=== PATIENT | female | born 1945 | race Caucasian/White ===

== ENCOUNTER 2019-09-05 14:13 | Outpatient (CLI) | payer MEDICARE, OTHER, SELFPAY | END 2019-09-05 14:14 | disposition home or self-care (01) | LOC: WOUND 14:15 | PROVIDERS: Family Provider Family Medicine; PCP Family Medicine; Visit Provider Thoracic Surgery (Cardiothoracic Vascular Surgery) | DX: I96 Gangrene, not elsewhere classified (principal); L97.812 Non-pressure chronic ulcer of other part of right lower leg with fat layer exposed | CPT/HCPCS: 11042; 87070; 87077; 87176; 87186; 87205; G0463 ==

== ENCOUNTER 2019-09-19 13:56 | Outpatient (CLI) | payer MEDICARE, OTHER, SELFPAY | END 2019-09-19 13:57 | disposition home or self-care (01) | LOC: WOUND 13:57 | PROVIDERS: Family Provider Family Medicine; PCP Family Medicine; Visit Provider Thoracic Surgery (Cardiothoracic Vascular Surgery) | DX: I87.2 Venous insufficiency (chronic) (peripheral) (principal); L97.812 Non-pressure chronic ulcer of other part of right lower leg with fat layer exposed; M79.604 Pain in right leg; L97.919 Non-pressure chronic ulcer of unspecified part of right lower leg with unspecified severity; L53.9 Erythematous condition, unspecified; M81.0 Age-related osteoporosis without current pathological fracture; M19.90 Unspecified osteoarthritis, unspecified site | CPT/HCPCS: 11043; 73590 ==

== ENCOUNTER 2019-09-19 15:33 | Outpatient (CLI) | payer MEDICARE, OTHER, SELFPAY ==
--- NOTE | 2019-09-19 15:45 | XR_ITS ---
WS: [id number] Right leg including the tibia and fibula, 2 views, 09/19/2019 Clinical Data: PAIN, REDNESS, NON HEALING ULCER Comparison: Right ankle, 05/29/2015. Findings: No new fractures or dislocations are seen. The tibia and fibula are intact. The soft tissues are norm al. The sixth orthopedic screws reducing an old distal right tibial fracture remaining in the same positi on. 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 There is narrowing of the ankle joint. There is o steoarthritis of the knee joint. XR/XR tibia fibula RT 2V [id number] Impression: 1. No change in position of orthopedic hardware in the distal right tibia. 2. Osteoporosis and osteoarthritis.
== END 2019-09-19 15:34 | disposition home or self-care (01) ==
LOC: RADWPI 15:42
PROVIDERS: Family Provider Family Medicine; PCP Family Medicine; Visit Provider Thoracic Surgery (Cardiothoracic Vascular Surgery)
DX: M79.604 Pain in right leg (principal); L97.919 Non-pressure chronic ulcer of unspecified part of right lower leg with unspecified severity; L53.9 Erythematous condition, unspecified; M81.0 Age-related osteoporosis without current pathological fracture; M19.90 Unspecified osteoarthritis, unspecified site
CPT/HCPCS: 73590

== ENCOUNTER 2019-09-26 09:34 | Outpatient (CLI) | payer MEDICARE, OTHER, SELFPAY ==
--- NOTE | 2019-09-26 10:15 | USCV_ITS ---
Alba Maria Age: 74 Gender: F : 1945 Exam Date: 09/26/2019 09:54 Ordering Phys: Reymundo De La Rosa MD (Andy) ([email or web address]) Technologist: Tre Otero Exam Location: [facility] – [place] Indication: HISTORY: PROCEDURES: FINDINGS: No DVT or superficial thrombus seen in right or left Right SFJ showed significant reflux Left - no reflux found Vessel diameters and reflux times noted above CONCLUSIONS No evidence of DVT in the above-mentioned identifiable veins. Significant venous reflux of greater than 500 ms(2037 msec) was noted at the right saphenofemoral junction. No deep venous reflux are noted. The venous dimensions, depth from the surface and reflux times are as mentioned above. Dr Balaji Carmichael MD FAC (Electronically Signed) Final Date: 27 September 2019 08:33 S
== END 2019-09-26 09:35 | disposition home or self-care (01) ==
PROVIDERS: Family Provider Family Medicine; PCP Family Medicine; Visit Provider Thoracic Surgery (Cardiothoracic Vascular Surgery)
DX: M79.605 Pain in left leg (principal); M79.604 Pain in right leg; L97.929 Non-pressure chronic ulcer of unspecified part of left lower leg with unspecified severity; L97.919 Non-pressure chronic ulcer of unspecified part of right lower leg with unspecified severity
CPT/HCPCS: 93970

== ENCOUNTER 2019-09-26 14:33 | Outpatient (CLI) | payer MEDICARE, OTHER, SELFPAY | END 2019-09-26 14:34 | disposition home or self-care (01) | LOC: WOUND 14:37 | PROVIDERS: Family Provider Family Medicine; PCP Family Medicine; Visit Provider Thoracic Surgery (Cardiothoracic Vascular Surgery) | DX: I87.2 Venous insufficiency (chronic) (peripheral) (principal); L97.812 Non-pressure chronic ulcer of other part of right lower leg with fat layer exposed; M79.605 Pain in left leg; M79.604 Pain in right leg; L97.929 Non-pressure chronic ulcer of unspecified part of left lower leg with unspecified severity; L97.919 Non-pressure chronic ulcer of unspecified part of right lower leg with unspecified severity | CPT/HCPCS: 11043; 93970 ==

== ENCOUNTER 2019-10-03 14:13 | Outpatient (CLI) | payer MEDICARE, OTHER, SELFPAY | END 2019-10-03 14:14 | disposition home or self-care (01) | LOC: WOUND 14:15 | PROVIDERS: Family Provider Family Medicine; PCP Family Medicine; Visit Provider Thoracic Surgery (Cardiothoracic Vascular Surgery) | DX: I87.2 Venous insufficiency (chronic) (peripheral) (principal); L97.812 Non-pressure chronic ulcer of other part of right lower leg with fat layer exposed | CPT/HCPCS: 11043; A6446 ==

== ENCOUNTER 2019-10-05 07:22 | Outpatient (CLI) | payer MEDICARE, OTHER, SELFPAY ==
--- NOTE | 2019-10-05 07:35 | USCV_ITS ---
Alba Maria Age: 74 Gender: F : 1945 Exam Date: 10/05/2019 07:31 Ordering Phys: Reymundo De La Rosa MD (Andy) ([email or web address] Technologist: Anisa Mcmahon Exam Location: [facility] [place] Indication: pain,redness, non healing ulcer Risk Factors: Previous Vascular Surgery: RIGHT LEFT BP: 185.0 / 63.00 BP: 172.0/ 74.00 0 0 Waveform Velocity (cm/s) Velocity (cm/s) Waveform Biphasic 107.6 Iliac Prox 177.8 Triphasic Biphasic 102.7 Iliac Mid 139.8 Triphasic Biphasic 132.0 Iliac Distal 157.1 Triphasic Biphasic 144.0 DETAILER 124.3 Biphasic Biphasic 131.1 SFA Prox 63.2 Biphasic Biphasic 110.7 SFA Mid 119.6 Biphasic Biphasic 101.5 SFA Dist 85.2 Biphasic Biphasic 86.1 POP 42.8 Biphasic Biphasic 34.7 CASH POSTING REPRESENTATIVE 39.0 Biphasic Biphasic 54.9 DPA 33.5 Biphasic 1.0 ZAHIRA 0.9 FINDINGS rt captain cannery tender 178, rt dpa 160 lt captain cannery tender 170, kt dpa 160 Moderate dense irregular plaques bilaterally at the iliac and femoral arteries. Normal resting ZAHIRA on the right side and slightly diminished resting ZAHIRA on the left side CONCLUSIONS Abnormal resting ZAHIRA on the left side, suggestive of mild peripheral artery disease Moderate dense irregular plaques at the iliac and femoral arteries bilaterally. Consider exercise ZAHIRA, to further evaluate the functional significance, if clinically indicated Dr Balaji Carmichael MD [facility] (Electronically Signed) Final Date: 06 October 2019 00:38 S
== END 2019-10-05 07:23 | disposition home or self-care (01) ==
PROVIDERS: PCP Family Medicine; Visit Provider Thoracic Surgery (Cardiothoracic Vascular Surgery)
DX: M79.604 Pain in right leg (principal); M79.605 Pain in left leg; L53.9 Erythematous condition, unspecified; L97.919 Non-pressure chronic ulcer of unspecified part of right lower leg with unspecified severity
CPT/HCPCS: 93925

== ENCOUNTER 2019-10-10 06:01 | Outpatient (CLI) | payer MEDICARE, OTHER, SELFPAY ==
--- NOTE | 2019-10-10 10:22 | NM_ITS ---
WS: [id number] WHOLE-BODY INDIUM-111 TAGGED TO WHITE BLOOD CELL SCAN AND TC 99M SULFUR COLLOID SCAN HISTORY: PAIN REDNESS, NONHEALING ULCER COMPARISON: Radiographs RIGHT tibia-fibula 09/19/2019. TECHNIQUE: Patient's white blood cells are injected with 410 uCi of indium-111. White cyst blood cell s are injected with imaging at 6 and 24 hours post injection. After 24 hour imaging, 9.7 uCi of tech netium 99m sulfur colloid was injected. Additional imaging over the area of concern The indium-111 white blood cell examination and the sulfur colloid examination are both positive on t he medial RIGHT lower extremity. This is in the area of the previously described soft tissue ulcer. T his is also the area where there are multiple screws or hardware in the distal tibia. No additional a reas of abnormal uptake on the indium-111 portion of the examination. Sulfur colloid exam was dedicat ed to the lower extremities. As there is abnormal activity on both the white blood cell study and the sulfur colloid imaging this would suggest displaced marrow and not infection. Areas of infection are increased on the indium-111 but no increase in the sulfur colloid examination. Also this patient has undergone surgical debrideme nt just prior to the sulfur colloid portion of the examination. If there was interruption or scraping along the cortical surface this may result in a false negative evaluation for osteomyelitis. NM/NM IN-111 WBC scan [id number] IMPRESSION: 1. The abnormal uptake in the distal tibia is congruent suggesting this is not osteomyelitis but displacement of normal marrow. One confounding factor is the fact that the patient recently had a surgical procedure and if there was inter ruption of the cortical surface of the bone it may obscure a positive response for osteomyelitis.
== END 2019-10-10 06:02 | disposition home or self-care (01) ==
LOC: NM 06:02
PROVIDERS: PCP Family Medicine; Visit Provider Thoracic Surgery (Cardiothoracic Vascular Surgery)
DX: M79.604 Pain in right leg (principal); L53.9 Erythematous condition, unspecified; L97.919 Non-pressure chronic ulcer of unspecified part of right lower leg with unspecified severity
CPT/HCPCS: 78804; A9570

== ENCOUNTER 2019-10-10 13:14 | Outpatient (CLI) | payer MEDICARE, OTHER, SELFPAY | END 2019-10-10 13:15 | disposition home or self-care (01) | LOC: WOUND 13:15 | PROVIDERS: PCP Family Medicine; Visit Provider Thoracic Surgery (Cardiothoracic Vascular Surgery) | DX: I87.2 Venous insufficiency (chronic) (peripheral) (principal); L97.812 Non-pressure chronic ulcer of other part of right lower leg with fat layer exposed | CPT/HCPCS: 11043; 11046 ==

== ENCOUNTER 2019-10-10 14:44 | Inpatient (IN) | payer MEDICARE, OTHER, SELFPAY ==
[2019-10-10 16:06] VITALS: BMI 22.6
--- NOTE | 2019-10-10 17:40 | XRR_ITS ---
PROCEDURE INFORMATION: Exam: XR Chest, 1 View Exam date and time: 10/10/2019 8:00 PM Age: 74 years old Clinical indication: Pre-operative exam; Cardiovascular screening and respiratory screening exam; Additional info: Preop for surgery TECHNIQUE: Imaging protocol: XR of the chest Views: 1 view. COMPARISON: No relevant prior studies available. FINDINGS: Lungs: Unremarkable. No consolidation. Pleural space: Unremarkable. No pleural effusion. No pneumothorax. Heart/Mediastinum: Unremarkable. No cardiomegaly. Bones/joints: Unremarkable. XR/XR chest 1V portable [id number] IMPRESSION: No acute findings.
[2019-10-10] MEDS: lactated ringers 1,000 ML 100 ML IV (18:10)
[2019-10-10] MEDS: vancomycin 1,000 MG in sodium chloride 0.9% 250 ML 250 MG IV (18:10)
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
[2019-10-10 19:31] LABS: Basophils % 0.5 %; Eosinophils # 0.1 10^3/uL (0.0-0.8); Eosinophils % 1.1 %; Hematocrit 33.5 % (37.0-47.0); Hemoglobin 10.9 g/dL (11.5-15.3); Lymphocytes # 2.1 10^3/uL (0.8-4.8); Lymphocytes % 34.1 %; Mean Corpuscular HGB Conc 32.5 g/dL (30.0-36.0); Mean Corpuscular Hemoglobin 34.2 pg (28.0-34.0); Mean Platelet Volume 10.4 fL (7.4-10.4); Monocytes # 0.4 10^3/uL (0.2-0.9); Monocytes % 6.4 %; Neutrophils # 3.54 10^3/uL (1.8-7.7); Neutrophils % 57.7 %; Nucleated Red Blood Cells % 0 %; Platelet Count 243 10^3/cmm (130-400); Red Blood Count 3.19 10^6/uL (4.1-5.3); Red Cell Distribution Width 13.6 % (12.1-15.1); White Blood Count 6.1 10^3/uL (4.0-10.0)
[2019-10-10 19:40] VITALS: BP 171/67; PULSE 64; RESP 18; TEMP 36.6; O2SAT 97
[2019-10-10] MEDS: diphenhydrAMINE 25 mg Capsule PO (19:50)
[2019-10-10] MEDS: HYDROcodone-acetaminophen 5-325 mg Tablet 1 TAB PO (19:50)
[2019-10-10] MEDS: piperacillin-tazobactam 3.375 GM in sodium chloride 0.9% (plus) 50 ML IV (19:51)
[2019-10-10 19:54] LABS: Alanine Aminotransferase 8 U/L (0-33); Albumin Level 3.6 g/dL (3.5-5.2); Alkaline Phosphatase 77 IU/L (35-105); Anion Gap 10.5 (5-19); Aspartate Amino Transferase 13 U/L (0-32); Blood Urea Nitrogen 13 mg/dL (8-23); Carbon Dioxide 27 mmol/L (22-29); Chloride 99 mmol/L (98-107); Globulin 2.8 g/dL (1.3-4.6); Glucose 105 mg/dL (65-115); Magnesium 1.6 mg/dL (1.7-2.3); Osmolality Calculated 273 mOsm/kg (285-295); Phosphorus 2.5 mg/dL (2.5-4.5); Potassium 3.5 mmol/L (3.5-5.1); Sodium 133 mmol/L (136-145); Total Bilirubin 0.2 mg/dL (0.15-1.2); Total Protein 6.4 g/dL (6.6-8.7)
[2019-10-10 19:56] LABS: Add Urine Microscopic? NO
[2019-10-10 20:27] LABS: INR 0.97 (0.8-1.2)
[2019-10-10 21:04] LABS: Bilirubin Urine Neg (NEGATIVE); Blood Urine Neg (Negative); Glucose Urine UA Norm (Normal); Ketones Urine Negative (Negative); Leukocyte Esterase Urine Negative (Negative); Nitrate Urine Negative (Negative); Protein Urine Neg (Negative); Specific Gravity, Urine 1.015 (1.005-1.030); Urine Appearance Clear (CLEAR); Urine Color Yellow (Yellow); Urobilinogen Urine Norm (Negative); pH Urine 7 (5-7)
[2019-10-10 23:28] VITALS: BP 150/54; PULSE 57; RESP 18; TEMP 37; O2SAT 99
[2019-10-11] VITALS (15 sets, daily range): BP systolic 85–199; BP diastolic 46–91; PULSE 48–80; RESP 12–20; TEMP 36.1–37.1; O2SAT 18–100
[2019-10-11] MEDS: lactated ringers 1,000 ML 100 ML IV ×2 (03:38→11:18)
[2019-10-11] MEDS: piperacillin-tazobactam 3.375 GM in sodium chloride 0.9% (plus) 50 ML IV ×2 (03:38→15:10)
[2019-10-11] MEDS: HYDROcodone-acetaminophen 5-325 mg Tablet 1 TAB PO ×4 (03:40→21:35)
--- NOTE | 2019-10-11 05:43 | PM.PN ---
Subjective Subjective: Interval history: Ms. Maria had an uneventful night. Rested well as reported by nursing service. I have reviewed laboratory data and personally reviewed the chest x-ray. Vitals/I&O/Wt Last Vital Signs Temp 98.2 F 10/11/19 04:00 Pulse 58 L 10/11/19 04:00 Resp 18 10/11/19 04:00 BP 138/68 10/11/19 04:00 Pulse Ox 96 10/11/19 04:00 10/10/19 10/10/19 10/11/19 14:59 22:59 06:59 Intake Total 282.708 / 282.708 713.959 / 996.667 Output Total 400 / 400 Balance 282.708 / 282.708 313.959 / 596.667 Weight last 48 hrs Weight 132 lb Physical Exam Resp: COMMON NORMALS: normal respiratory effort and clear to auscultation bilaterally EFFORT & INSPECTION: Yes able to speak in complete sentences and Yes symmetric chest movement AUSCULTATION: clear to auscultation bilaterally Cardio: COMMON NORMALS: regular rate and regular rhythm RATE: regular rate RHYTHM: regular rhythm Extremity: OTHER: Dressing remains in place of the right lower extremity. No strikethrough. Will plan for surgical debridement with anesthesia assistance for allowing appropriate patient comfort what appears to be a continuation of this process anteriorly and laterally. Data : 10/10/19 18:56 10/10/19 18:56 A&P Assessment and plan (1) Abscess of leg without foot, right: We will plan for surgical debridement this morning of the right lower extremity with anesthesia assistance for patient comfort. If extent does not proceed beneath the fascia, will hopefully plan for discharge to home this evening and continued treatment through the wound care services at [facility]. Details and risk of procedure carefully and frankly discussed with Ms. Maria. Proper consents have been provided for review and signature. Status: Acute Attestations Medical Necessity Statement*: Venous ulceration with abscess right lower extremity Time Spent in Patient Care: less than 15 minutes Coding Level of Care Code Acute Poll Clerk for g Fwd Diagnoses Abscess of leg without foot, right L02.415
--- NOTE | 2019-10-11 07:59 | PC.NURSE ---
Patient off unit
--- NOTE | 2019-10-11 08:20 | PC.CHAP ---
Pastoral Care Encounter/Spiritual Assessment Type of Contact [] Declined human development professor visit [] Patient/Family/Request visit [] Outpatient visit [] Follow-up visit [] Physician referral [] Code/Alert [x] Routine visit [] Staff referral [] Actively dying [] Patient sleeping [] Family support [] [] Out of room [] Palliative care [] [] Receiving care in room [] Pre-surgical visit [] Trauma [] Long length of stay [] ICU visit [] Other: Relational/Emotional Strength [] Patient feels connected with others/family/visitors/staff [] Distress [] Loneliness/isolation [] Abandonment Spirituality of Patient [] Person of Anika [] Attends Protestant of their Anika [] Believes in Prayer [] Reads Bible or Oriental Orthodox materials [] There are Spiritual issues to be addressed Senior Project Controls Specialist Interventions [x] Prayer [] Active listening [] Non-anxious presence [] Spiritual/emotional support [] Crisis/trauma care [] Spiritual counseling [] Bereavement support [] Provided bereavement packet [] Provided Bible/devotional materials [] Provided toy/stuffed animal, coloring book to patient or family member [] Provided Communion [] Anointing/[place] [] Salvation [x] Completed spiritual assessment [] Other: Impact on Illness or Injury [] Angry [] Fearful [] Anxious [] Often cries [] Exhaustion [] Unable to work [] Unable to attend muslim [] Unable to walk/stand [] Unable to read [] Unable to drive [] Unable to eat/drink [] Unable to sleep [] Unable to be with family [] Patient intubated [] Other: Summary quick prayer patient on her way to surgery Time spent with patient
[2019-10-11] MEDS: sodium chloride 0.9% 1,000 ML 30 ML IV (08:29)
--- NOTE | 2019-10-11 08:38 | ECG_ITS ---
[facility] Test Date: 2019-10-11 Pat Name: Alba Maria Department: Room: 272 Gender: Female Netezza Developer: : 1945 Requested By: Ros Verdin Order Number: [id number] Sigifredo MD: Kota Pope M.D. Measurements Intervals [place] Rate: 49 P: 27 WV: 143 QRS: 15 QRSD: 96 T: 16 QT: 442 QTc: 401 Interpretive Statements SINUS BRADYCARDIA SEPTAL MYOCARDIAL INFARCTION [40+ ms Q WAVE IN V1/V2], OF INDETERMINATE AGE No previous ECG available for comparison Electronically Signed On 10-11-2019 18:04:22 CDT by Kota Pope M.D. [email or web address]
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
[2019-10-11] MEDS: lidocaine 1% INJ 20 mL INJECTION (09:20)
[2019-10-11] MEDS: ceFAZolin 1,000 mg SDV 1000 MG IRRIGATION (09:49)
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
--- NOTE | 2019-10-11 10:21 | SUR.PHASEI ---
1019 PATIENT TO PACU FROM OR. NO DISTRESS. RR EVEN AND UNLABORED. SPO2 98% ON SIMPLE MASK. DRESSING TO RIGHT LOWER LEG, CDI.
[2019-10-11] MEDS: fentaNYL 50 mcg/mL INJ 2mL IVP (10:31)
--- NOTE | 2019-10-11 11:02 | SUR.PHASEI ---
1041 PATIENT TO MED SURG AT THIS TIME. NO DISTRESS. PAIN IMPROVED. DRESSING TO RIGHT LOWER EXT CDI. ANESTHESIA AWARE OF LAST DOSE OF FENTANYL, THIS NURSE REMAINED WITH PATIENT UNTIL 1100.
--- NOTE | 2019-10-11 11:05 | PC.NURSE ---
Patient returned to floor, denies pain, vitals stable as documented, sipping on coffee, call light in reach, side rails up X2, denies further needs at this time.
[2019-10-11] MEDS: FUROsemide 40 mg Tablet PO (11:25)
[2019-10-11] MEDS: pantoprazole DR 40 mg Tablet PO (11:25)
[2019-10-11] MEDS: aspirin 81 mg Chew Tablet PO (11:26)
[2019-10-11] MEDS: lisinopril 20 mg Tablet PO (11:26)
[2019-10-11] MEDS: potassium chloride ER 10 mEq Tablet 20 MEQ PO (11:26)
[2019-10-11] MEDS: amlodipine 10 mg Tablet PO (11:26)
--- NOTE | 2019-10-11 12:39 | PC.NURSE ---
Patient off unit
[2019-10-11] MEDS: vancomycin 1,000 MG in sodium chloride 0.9% 250 ML 250 MG IV (15:10)
--- NOTE | 2019-10-11 15:19 | XR_ITS ---
WS: [id number] PORTABLE CHEST HISTORY: picc placement COMPARISON: 10/10/2019 Right-sided PICC line in good position with tip in the distal SVC. No complications. There is a nodule at the LEFT lung base which is probably a nipple shadow. Not identified on the prio r study from 10/10/2019. No pleural effusion or pneumothorax. Cardiac size: Normal. Mediastinum/Aorta: Mild atherosclerosis aorta. No osseous abnormality seen. XR/XR chest 1V portable [id number] IMPRESSION: Satisfactory placement of a RIGHT PICC line.
[2019-10-12] VITALS: BP 131/45; PULSE 59; RESP 17; TEMP 36.8; O2SAT 97
[2019-10-12] MEDS: lactated ringers 1,000 ML 100 ML IV (01:02)
[2019-10-12] MEDS: piperacillin-tazobactam 3.375 GM in sodium chloride 0.9% (plus) 50 ML IV (01:02)
[2019-10-12] MEDS: HYDROcodone-acetaminophen 5-325 mg Tablet 1 TAB PO ×2 (02:30→05:38)
[2019-10-12 03:50] VITALS: BP 147/57; PULSE 70; RESP 17; TEMP 36.7; O2SAT 98
[2019-10-12] MEDS: vancomycin 1,000 MG in sodium chloride 0.9% 250 ML 250 MG IV (05:38)
--- NOTE | 2019-10-12 05:54 | PM.PN ---
Subjective Subjective: Interval history: Postop day #1 status post incision and drainage and debridement of ulceration right lower extremity. Results of tagged white blood cell count noted. She had uneventful night. Wound Gram stain did report gram-positive cocci in pairs Vitals/I&O/Wt Last Vital Signs Temp 98.0 F 10/12/19 03:50 Pulse 70 10/12/19 03:50 Resp 17 10/12/19 03:50 BP 147/57 10/12/19 03:50 Pulse Ox 98 10/12/19 03:50 10/11/19 10/11/19 10/12/19 14:59 22:59 06:59 Intake Total 826.667 / 375.780 5355 / 2246.667 Output Total 0 / 0 530 / 530 Balance 826.667 / 635.129 5025 / 2246.667 -530 / 1716.667 Weight last 48 hrs Weight 132 lb Physical Exam Extremity: NARRATIVE EXTREMITY EXAM: Right lower extremity surgical dressing in place. Data : 10/10/19 18:56 10/10/19 18:56 Micro: Microbiology 10/11/19 10:00 Gram Stain - Final Leg - #1 A&P Assessment and plan (1) Venous stasis ulcer of right lower leg with edema of right lower leg: We will plan for discharge to home today but continue parenteral vancomycin for now pending response of recent surgical debridement and follow-up in wound care services. I will see her next Wednesday in the wound care clinic. Status: Acute Attestations Medical Necessity Statement*: Postop day #1 status post debridement of right lower extremity ulcer Time Spent in Patient Care: 16 - 35 minutes Coding Level of Care Code Acute Graphic Design Manager for Lo Khan Diagnoses Venous stasis ulcer of right lower leg with edema of right lower leg I83.019; I83.891; L97.919; R60.9
--- NOTE | 2019-10-12 06:47 | PC.NURSE ---
Dr. Kahn at bedside, assisted with dressing change, patient is going to be discharged this morning and will receive outpatient iv antibiotics, and follow up with wound care, patient will need supplies ordered.
--- NOTE | 2019-10-12 06:52 | PM.DCS ---
Discharge Providers Date of Admission: 10/10/19 14:44 Date of Discharge: October 12, 2019 Attending Provider at Admission: Reymundo De La Rosa MD Attending Provider at Discharge: Reymundo De La Rosa MD Primary Care Provider: Jesus Piper MD Diagnoses at Discharge Discharge Diagnosis (1) Venous stasis ulcer of right lower leg with edema of right lower leg: Status: Acute Hospital Course Discharge Summary: Ms. Maria was electively admitted for planned debridement of a ulceration of her right lower extremity which is been present for over 1 month and is failed to improve with management [place] [facility] [place] Last debridement of the clinic was relatively painful therefore I elected for planned admission for more aggressive debridement under anesthesia. This was performed without difficulty. As well, given the concerns of prior orthopedic hardware in the region, a white blood cell tagged scan was completed which was not suggestive for osteomyelitis though because of recent debridement, definitive results could not be confirmed. She does have gram-positive cocci in pairs in her wound, therefore right upper extremity PICC line was placed and she has been initiated on vancomycin which she will have infused [place] [facility] [place] She does not wish to have home health services do this. Wound remains clean at this time with a wick dressing change performed on the morning of discharge. She will follow-up in wound care services next Wednesday. At discharge she is in stable condition. Physical Exam Extremity: NARRATIVE EXTREMITY EXAM: The debrided ulceration bed is clean without further evidence for purulence. Wet-to-dry dressing change was performed this morning, which she tolerated well. Currently receiving vancomycin infusion. Discharge Data Data Completed and Pending: Completed Studies During Hospitalization Category Date Time Status CXRP [XR chest 1V portable [id number]] R outine Exams 10/11/19 15:19 Completed XR chest 1V leonidas ble [id number] Routine Exams 10/10/19 17:40 Completed Pending at discharge Category Date Time Status Anaerobic Culture Routine Lab 10/11/19 10:00 Received Tissue Culture an d Gram Stain Routi ne Lab 10/11/19 10:00 Results Vancomycin Trough Timed Lab 10/12/19 17:00 Ordered Wound Culture Rou popeye Lab 10/11/19 10:00 Received Vitals: Last Vital Signs Temp 98.0 F 10/12/19 03:50 Pulse 70 10/12/19 03:50 Resp 17 10/12/19 03:50 BP 147/57 10/12/19 03:50 Pulse Ox 98 10/12/19 03:50 Discharge Plan Discharge Patient Disposition: Home Condition: Stable Prescriptions: New vancomycin 1,000 mg recon soln 1,000 mg IV Q18H PRN (Reason: infection) 42 Days RF: 0 Continued furosemide 40 mg Tablet 40 mg PO DAILY RF: 0 Aspirin Low Dose 81 mg Tablet,Delayed Release (Dr/Ec) 81 mg PO DAILY RF: 0 folic acid 1 mg Tablet 1 mg PO DAILY RF: 0 hydrochlorothiazide 50 mg Tablet 50 mg PO DAILY RF: 0 hydrocodone-acetaminophen 5-325 mg Tablet 1 - 2 tab PO Q6H PRN (Reason: Pain) RF: 0 lisinopril 20 mg Tablet 20 mg PO DAILY RF: 0 potassium chloride 20 mEq Tablet,Er Particles/Crystals 20 meq PO TID RF: 0 methotrexate sodium 2.5 mg Tablet 17.5 mg PO Q7D RF: 0 amlodipine 10 mg Tablet 10 mg PO DAILY RF: 0 simvastatin 20 mg Tablet 20 mg PO DAILY RF: 0 fentanyl 25 mcg/hr Patch 72 Hour 1 patch TRANSDERMAL Q72H RF: 0 Discharge Orders: Discharge Order (Routine); Ordered 10/12/19 Ordered By: Reymundo De La Rosa Referrals: WOUND CARE CLINIC, [Staff Physician] - 10/17/19 Discharge Diet: Usual diet Discharge Activity: Resume usual activity Activity Restrictions/Additional Instructions: Wet-to-dry dressing changes to right lower extremity wound daily Discharge Attestations Time Spent in Discharge Care*: greater than 30 min Specific Discharge Activities: Specific discharge activities: educating patient, discussing with insurance case manager/social workers/dc planners, documenting/other paperwork and evaluating patient/reviewing data Status at Discharge: Cognitive status at discharge: cognitively intact, Behavioral status at discharge: cooperative, Overall status at discharge: patient is back to baseline Quality Metrics Clinical Quality Measures During this hospital stay, did patient experience: None Coding Level of Care Code Acute Ship'S Cook for Lo Khan Diagnoses Venous stasis ulcer of right lower leg with edema of right lower leg I83.019; I83.891; L97.919; R60.9
[2019-10-12 07:56] VITALS: BP 133/51; PULSE 60; RESP 18; TEMP 36.7; O2SAT 98
[2019-10-12] MEDS: amlodipine 10 mg Tablet PO (08:57)
[2019-10-12] MEDS: aspirin 81 mg Chew Tablet PO (08:57)
[2019-10-12] MEDS: potassium chloride ER 10 mEq Tablet 20 MEQ PO (08:57)
[2019-10-12] MEDS: FUROsemide 40 mg Tablet PO (08:57)
[2019-10-12] MEDS: lisinopril 20 mg Tablet PO (08:57)
[2019-10-12] MEDS: pantoprazole DR 40 mg Tablet PO (08:58)
[2019-10-12 10:02] VITALS: BP 133/51; PULSE 60; RESP 18; TEMP 36.7; O2SAT 98
== END 2019-10-12 09:30 | disposition home or self-care (01) | DRG 572 ==
PROVIDERS: Admitting Provider Thoracic Surgery (Cardiothoracic Vascular Surgery); PCP Family Medicine; Visit Provider Thoracic Surgery (Cardiothoracic Vascular Surgery)
PROC: 0JBN0ZZ Excision of Right Lower Leg Subcutaneous Tissue and Fascia, Open Approach (ICD-10-PCS; principal; 2019-10-11 09:05)
DX: L97.919 Non-pressure chronic ulcer of unspecified part of right lower leg with unspecified severity (principal); I83.891 Varicose veins of right lower extremity with other complications; I87.8 Other specified disorders of veins; Z79.82 Long term (current) use of aspirin; I83.019 Varicose veins of right lower extremity with ulcer of unspecified site; I10 Essential (primary) hypertension; M06.9 Rheumatoid arthritis, unspecified; Z86.73 Personal history of transient ischemic attack (TIA), and cerebral infarction without residual deficits; Z87.891 Personal history of nicotine dependence
CPT/HCPCS: 11043; 11046; 12345; 36415; 36569; 71045; 78804; 80053; 81003; 83735; 84100; 85025; 85610; 87070; 87075; 87077; 87176; 87186; 87205; 93005; 93010; A9570; J0690; J2250; J2543; J2704; J3010; J3370; J7030; J7050

== ENCOUNTER 2019-10-13 06:08 | Outpatient (RCR) | payer MEDICARE, OTHER, SELFPAY ==
[2019-10-13] MEDS: vancomycin 1,000 MG in sodium chloride 0.9% 250 ML 250 MG IV (06:33)
[2019-10-13 07:04] VITALS: BP 139/49; PULSE 72; RESP 20; TEMP 36.9; O2SAT 96
[2019-10-13 07:06] VITALS: BMI 22.6
[2019-10-14] MEDS: vancomycin 1,000 MG in sodium chloride 0.9% 250 ML 250 MG IV (06:30)
[2019-10-14 07:21] VITALS: BP 142/69; PULSE 69; RESP 16; TEMP 36.6; O2SAT 98
[2019-10-14 08:04] LABS: Vancomycin Trough 5.7 ug/mL (10-15)
[2019-10-15 06:10] VITALS: BP 174/84; PULSE 74; RESP 16; TEMP 36.6; O2SAT 96
[2019-10-16 06:17] VITALS: BP 143/45; PULSE 69; RESP 18; TEMP 36.4; O2SAT 96
[2019-10-17 06:25] VITALS: BP 135/49; PULSE 67; RESP 18; TEMP 37.1; O2SAT 97
[2019-10-17 07:00] LABS: Vancomycin Trough 5.9 ug/mL (10-15)
[2019-10-18 06:50] VITALS: BP 138/66; PULSE 63; RESP 18; TEMP 37.3; O2SAT 97
[2019-10-18 07:54] LABS: Vancomycin Trough 8.6 ug/mL (10-15)
--- NOTE | 2019-10-18 08:22 | PC.NURSE ---
VANC TROUGH DRAWN THIS AM, RESULTS WERE 8.6. THE PHARMACIST MICHAEL CHANGED THE DOSE TO 1 GRAM BID. PT NOTIFIED OF NEW SCHEDULE.
[2019-10-18] MEDS: vancomycin 1,000 MG in sodium chloride 0.9% 250 ML 250 MG IV (16:50)
[2019-10-18 17:17] VITALS: BP 125/49; PULSE 76; RESP 18; TEMP 36.2; O2SAT 97
[2019-10-19 06:00] VITALS: BP 135/96; PULSE 68; RESP 18; TEMP 36.8; O2SAT 98
[2019-10-19] MEDS: vancomycin 1,000 MG in sodium chloride 0.9% 250 ML 250 MG IV ×2 (06:10→17:00)
[2019-10-19 17:12] VITALS: BP 130/87; PULSE 70; RESP 18; TEMP 36.3; O2SAT 98
[2019-10-19 17:52] LABS: Vancomycin Trough 16.3 ug/mL (10-15)
[2019-10-20 06:02] VITALS: BP 140/63; PULSE 74; RESP 18; TEMP 36.9; O2SAT 98
[2019-10-20] MEDS: vancomycin 1,000 MG in sodium chloride 0.9% 250 ML 250 MG IV (06:10)
[2019-10-20 17:55] VITALS: BP 117/64; PULSE 86; RESP 18; TEMP 36.1
[2019-10-20 18:00] VITALS: BP 117/64; RESP 18; TEMP 36.1
[2019-10-21] MEDS: vancomycin 1,000 MG in sodium chloride 0.9% 250 ML 250 MG IV (06:10)
[2019-10-21 06:16] VITALS: BP 132/63; PULSE 93; RESP 18; TEMP 36.8; O2SAT 95
[2019-10-21 17:38] VITALS: BP 117/62; PULSE 72; RESP 18; TEMP 36.1; O2SAT 95
[2019-10-22] MEDS: vancomycin 1,000 MG in sodium chloride 0.9% 250 ML 250 MG IV ×2 (06:10→17:00)
[2019-10-22 06:25] VITALS: BP 114/46; PULSE 73; RESP 18; TEMP 36.8; O2SAT 97
[2019-10-22 16:45] VITALS: BP 143/71; PULSE 86; RESP 18; TEMP 36.3; O2SAT 98
[2019-10-23] MEDS: vancomycin 1,000 MG in sodium chloride 0.9% 250 ML 250 MG IV ×2 (06:00→17:01)
[2019-10-23 06:27] VITALS: BP 122/54; PULSE 69; RESP 18; TEMP 37; O2SAT 96
[2019-10-23 17:04] VITALS: BP 120/60; PULSE 70; RESP 18; TEMP 36.7; O2SAT 96
[2019-10-23 17:46] LABS: Vancomycin Trough 18.9 ug/mL (10-15)
[2019-10-23 17:54] LABS: Anion Gap 15.2 (5-19); Blood Urea Nitrogen 13 mg/dL (8-23); Calcium 9.3 mg/dL (8.5-10.5); Carbon Dioxide 25 mmol/L (22-29); Chloride 99 mmol/L (98-107); Glucose 111 mg/dL (65-115); Osmolality Calculated 277 mOsm/kg (285-295); Potassium 4.2 mmol/L (3.5-5.1); Sodium 135 mmol/L (136-145)
[2019-10-24] MEDS: vancomycin 1,000 MG in sodium chloride 0.9% 250 ML 300 MG IV ×2 (06:02→16:50)
[2019-10-24 06:03] VITALS: BP 133/77; PULSE 70; RESP 18; TEMP 36.4; O2SAT 98
[2019-10-24 16:45] VITALS: BP 129/65; PULSE 76; RESP 18; TEMP 36.3; O2SAT 97
[2019-10-25] MEDS: vancomycin 1,000 MG in sodium chloride 0.9% 250 ML 300 MG IV ×2 (06:17→17:00)
[2019-10-25 06:20] VITALS: BP 138/67; PULSE 71; RESP 18; TEMP 36.4; O2SAT 97
[2019-10-25 16:53] VITALS: BP 134/61; PULSE 77; RESP 18; TEMP 37.1; O2SAT 97
[2019-10-26 05:48] VITALS: BP 152/70; PULSE 64; RESP 18; TEMP 36.5; O2SAT 98
[2019-10-26] MEDS: vancomycin 1,000 MG in sodium chloride 0.9% 250 ML 300 MG IV ×2 (05:55→17:00)
[2019-10-26 17:48] VITALS: BP 113/60; PULSE 76; RESP 18; TEMP 37.2; O2SAT 97
[2019-10-27 05:40] VITALS: BP 148/50; PULSE 67; RESP 18; TEMP 36.7; O2SAT 98
[2019-10-27] MEDS: vancomycin 1,000 MG in sodium chloride 0.9% 250 ML 250 MG IV (05:55)
[2019-10-27 16:52] VITALS: BP 144/47; PULSE 73; RESP 18; TEMP 36.6; O2SAT 97
[2019-10-27] MEDS: vancomycin 1,000 MG in sodium chloride 0.9% 250 ML 300 MG IV (17:15)
[2019-10-28] MEDS: vancomycin 1,000 MG in sodium chloride 0.9% 250 ML 300 MG IV ×2 (06:07→17:01)
[2019-10-28 06:08] VITALS: BP 167/57; PULSE 69; RESP 18; TEMP 37; O2SAT 97
[2019-10-28 17:02] VITALS: BP 114/53; PULSE 73; RESP 18; TEMP 36.3; O2SAT 97
[2019-10-29 05:46] VITALS: BP 141/73; PULSE 68; RESP 18; TEMP 36.8; O2SAT 97
[2019-10-29] MEDS: vancomycin 1,000 MG in sodium chloride 0.9% 250 ML 300 MG IV ×2 (05:55→17:19)
[2019-10-29 17:17] VITALS: BP 141/74; PULSE 79; RESP 20; TEMP 36.3; O2SAT 98
[2019-10-30] MEDS: vancomycin 1,000 MG in sodium chloride 0.9% 250 ML 300 MG IV ×2 (06:10→16:50)
[2019-10-30 06:16] VITALS: BP 117/39; PULSE 65; RESP 20; TEMP 36.5; O2SAT 96
[2019-10-30 06:27] LABS: Blood Urea Nitrogen 10 mg/dL (8-23); Carbon Dioxide 28 mmol/L (22-29); Chloride 100 mmol/L (98-107); Glucose 95 mg/dL (65-115); Osmolality Calculated 276 mOsm/kg (285-295); Sodium 135 mmol/L (136-145)
[2019-10-30 06:33] LABS: Vancomycin Trough 17.6 ug/mL (10-15)
[2019-10-30 06:43] LABS: Anion Gap 11.6 (5-19); Potassium 4.6 mmol/L (3.5-5.1)
[2019-10-30 17:03] VITALS: BP 126/57; PULSE 70; RESP 18; TEMP 36.4; O2SAT 97
[2019-10-31 05:45] VITALS: BP 168/48; PULSE 71; RESP 18; TEMP 36.6; O2SAT 97
[2019-10-31] MEDS: vancomycin 1,000 MG in sodium chloride 0.9% 250 ML 300 MG IV ×2 (05:55→16:45)
[2019-10-31 16:50] VITALS: BP 112/52; PULSE 73; RESP 18; TEMP 36.9; O2SAT 97
[2019-11-01] MEDS: vancomycin 1,000 MG in sodium chloride 0.9% 250 ML 300 MG IV ×2 (06:00→16:50)
[2019-11-01 06:01] VITALS: BP 123/65; PULSE 70; RESP 18; TEMP 36.9; O2SAT 95
[2019-11-01 17:04] VITALS: BP 153/86; PULSE 71; RESP 18; TEMP 36.5; O2SAT 97
[2019-11-02] MEDS: vancomycin 1,000 MG in sodium chloride 0.9% 250 ML 300 MG IV ×2 (06:18→16:55)
[2019-11-02 06:19] VITALS: BP 118/57; PULSE 64; RESP 18; TEMP 36.2; O2SAT 99
[2019-11-02 17:07] VITALS: BP 135/55; PULSE 78; RESP 16; TEMP 36.6; O2SAT 96
[2019-11-03 05:59] VITALS: BP 136/65; PULSE 68; RESP 18; TEMP 36.7; O2SAT 98
[2019-11-03] MEDS: vancomycin 1,000 MG in sodium chloride 0.9% 250 ML 300 MG IV ×2 (05:59→17:01)
[2019-11-03 16:59] VITALS: BP 124/36; PULSE 75; RESP 18; TEMP 36.9; O2SAT 95
[2019-11-04 05:56] VITALS: BP 128/64; PULSE 67; RESP 18; TEMP 36.5; O2SAT 98
[2019-11-04] MEDS: vancomycin 1,000 MG in sodium chloride 0.9% 250 ML 300 MG IV ×2 (05:56→14:53)
[2019-11-04 14:54] VITALS: BP 137/60; PULSE 74; RESP 18; TEMP 36.8; O2SAT 98
[2019-11-05] MEDS: vancomycin 1,000 MG in sodium chloride 0.9% 250 ML 300 MG IV ×2 (05:57→14:58)
[2019-11-05 05:58] VITALS: BP 137/86; PULSE 73; RESP 18; TEMP 36.7; O2SAT 97
[2019-11-05 14:59] VITALS: BP 128/63; PULSE 75; RESP 18; TEMP 36.2; O2SAT 97
[2019-11-06] MEDS: vancomycin 1,000 MG in sodium chloride 0.9% 250 ML 300 MG IV ×2 (06:12→16:55)
[2019-11-06 06:13] VITALS: BP 113/44; PULSE 63; RESP 18; TEMP 36.3; O2SAT 98
[2019-11-06 06:35] LABS: Anion Gap 11.3 (5-19); Blood Urea Nitrogen 13 mg/dL (8-23); Calcium 9.6 mg/dL (8.5-10.5); Carbon Dioxide 27 mmol/L (22-29); Chloride 102 mmol/L (98-107); Glucose 107 mg/dL (65-115); Osmolality Calculated 279 mOsm/kg (285-295); Potassium 4.3 mmol/L (3.5-5.1); Sodium 136 mmol/L (136-145)
[2019-11-06 06:36] LABS: Vancomycin Trough 15.5 ug/mL (10-15)
[2019-11-06 16:45] VITALS: BP 144/73; PULSE 73; RESP 16; TEMP 36.3; O2SAT 98
== END 2019-11-06 23:59 | disposition home or self-care (01) ==
LOC: OPS 06:08
PROVIDERS: PCP Family Medicine; Visit Provider Thoracic Surgery (Cardiothoracic Vascular Surgery)
DX: B99.9 Unspecified infectious disease (principal)
CPT/HCPCS: 15852; 36415; 36592; 80048; 80202; 82565; 96365; 96366; J3370; J7050

== ENCOUNTER 2019-10-17 13:50 | Outpatient (CLI) | payer MEDICARE, OTHER, SELFPAY | END 2019-10-17 13:51 | disposition home or self-care (01) | LOC: WOUND 13:51 | PROVIDERS: PCP Family Medicine; Visit Provider Thoracic Surgery (Cardiothoracic Vascular Surgery) | DX: I87.2 Venous insufficiency (chronic) (peripheral) (principal); L97.815 Non-pressure chronic ulcer of other part of right lower leg with muscle involvement without evidence of necrosis | CPT/HCPCS: 11043; 11046 ==

== ENCOUNTER 2019-10-24 07:43 | Outpatient (CLI) | payer MEDICARE, OTHER, SELFPAY | END 2019-10-24 07:44 | disposition home or self-care (01) | LOC: WOUND 07:43 | PROVIDERS: PCP Family Medicine; Visit Provider Nurse Practitioner Family | DX: I87.2 Venous insufficiency (chronic) (peripheral) (principal); L97.812 Non-pressure chronic ulcer of other part of right lower leg with fat layer exposed | CPT/HCPCS: 11043; 11046 ==

== ENCOUNTER 2019-10-31 08:26 | Outpatient (CLI) | payer MEDICARE, OTHER, SELFPAY | END 2019-10-31 08:27 | disposition home or self-care (01) | LOC: WOUND 08:27 | PROVIDERS: PCP Family Medicine; Visit Provider Pharmacist | DX: I87.2 Venous insufficiency (chronic) (peripheral) (principal); L97.812 Non-pressure chronic ulcer of other part of right lower leg with fat layer exposed | CPT/HCPCS: 11042; 11045 ==

== ENCOUNTER 2019-11-03 15:40 | Outpatient (CLI) | payer MEDICARE, OTHER, SELFPAY | END 2019-11-03 15:41 | disposition home or self-care (01) | LOC: WOUND 15:43 | PROVIDERS: PCP Family Medicine; Visit Provider Surgery | DX: I87.2 Venous insufficiency (chronic) (peripheral) (principal); L97.822 Non-pressure chronic ulcer of other part of left lower leg with fat layer exposed | CPT/HCPCS: 97605 ==

== ENCOUNTER 2019-11-07 08:35 | Outpatient (CLI) | payer MEDICARE, OTHER, SELFPAY | END 2019-11-07 08:36 | disposition home or self-care (01) | LOC: WOUND 08:36 | PROVIDERS: PCP Family Medicine; Visit Provider Thoracic Surgery (Cardiothoracic Vascular Surgery) | DX: I87.2 Venous insufficiency (chronic) (peripheral) (principal); L97.812 Non-pressure chronic ulcer of other part of right lower leg with fat layer exposed | CPT/HCPCS: 11043; 11046; 97605 ==

== ENCOUNTER 2019-11-10 14:44 | Outpatient (RCR) | payer MEDICARE, OTHER, SELFPAY | END 2019-11-10 18:00 | disposition home or self-care (01) | LOC: WOUND 14:44 | PROVIDERS: PCP Family Medicine; Visit Provider Surgery | DX: I87.2 Venous insufficiency (chronic) (peripheral) (principal); L97.812 Non-pressure chronic ulcer of other part of right lower leg with fat layer exposed | CPT/HCPCS: 11043; 11046; 97605 ==

== ENCOUNTER 2019-11-14 07:55 | Outpatient (CLI) | payer MEDICARE, OTHER, SELFPAY | END 2019-11-14 07:56 | disposition home or self-care (01) | LOC: WOUND 07:56 | PROVIDERS: PCP Family Medicine; Visit Provider Thoracic Surgery (Cardiothoracic Vascular Surgery) | DX: I87.2 Venous insufficiency (chronic) (peripheral) (principal); L97.512 Non-pressure chronic ulcer of other part of right foot with fat layer exposed | CPT/HCPCS: 11043; 11046 ==

== ENCOUNTER 2019-11-17 15:43 | Outpatient (CLI) | payer MEDICARE, OTHER, SELFPAY | END 2019-11-17 15:44 | disposition home or self-care (01) | LOC: WOUND 15:44 | PROVIDERS: PCP Family Medicine; Visit Provider Surgery | DX: I87.2 Venous insufficiency (chronic) (peripheral) (principal); L97.822 Non-pressure chronic ulcer of other part of left lower leg with fat layer exposed | CPT/HCPCS: 97605 ==

== ENCOUNTER 2019-11-21 08:09 | Outpatient (CLI) | payer MEDICARE, OTHER, SELFPAY | END 2019-11-21 08:10 | disposition home or self-care (01) | LOC: WOUND 08:10 | PROVIDERS: PCP Family Medicine; Visit Provider Thoracic Surgery (Cardiothoracic Vascular Surgery) | DX: I87.2 Venous insufficiency (chronic) (peripheral) (principal); L97.812 Non-pressure chronic ulcer of other part of right lower leg with fat layer exposed | CPT/HCPCS: 11043; 11046; 97605 ==

== ENCOUNTER 2019-11-23 15:15 | Outpatient (RCR) | payer MEDICARE, OTHER, SELFPAY ==
[2019-11-07] MEDS: vancomycin 1,000 MG in sodium chloride 0.9% 250 ML 300 MG IV ×2 (06:20→16:50)
[2019-11-07 06:31] VITALS: BP 119/57; PULSE 65; RESP 18; TEMP 36.3; O2SAT 97; BMI 31.7
[2019-11-07 17:10] VITALS: BP 125/80; PULSE 75; RESP 18; TEMP 36.3; O2SAT 96
[2019-11-08] MEDS: vancomycin 1,000 MG in sodium chloride 0.9% 250 ML 300 MG IV ×2 (06:05→16:45)
[2019-11-08 06:09] VITALS: BP 119/69; PULSE 72; RESP 18; TEMP 36.3; O2SAT 95
[2019-11-08 16:52] VITALS: BP 123/85; PULSE 68; RESP 18; TEMP 36.5; O2SAT 98
[2019-11-09] MEDS: vancomycin 1,000 MG in sodium chloride 0.9% 250 ML 300 MG IV ×2 (06:02→16:50)
[2019-11-09 06:03] VITALS: BP 150/82; PULSE 71; RESP 18; TEMP 36.3; O2SAT 98
[2019-11-09 16:50] VITALS: BP 137/71; PULSE 74; RESP 18; TEMP 36.5; O2SAT 98
[2019-11-10] MEDS: vancomycin 1,000 MG in sodium chloride 0.9% 250 ML 300 MG IV ×2 (05:55→16:51)
[2019-11-10 05:56] VITALS: BP 133/58; PULSE 68; RESP 18; TEMP 36.5; O2SAT 98
[2019-11-10 16:45] VITALS: BP 116/53; PULSE 66; RESP 18; TEMP 36.3; O2SAT 97
[2019-11-11] MEDS: vancomycin 1,000 MG in sodium chloride 0.9% 250 ML 300 MG IV ×2 (06:00→16:50)
[2019-11-11 06:27] VITALS: BP 172/73; PULSE 73; RESP 18; TEMP 36.3; O2SAT 95
[2019-11-11 17:20] VITALS: BP 126/60; PULSE 80; RESP 18; TEMP 36.5; O2SAT 97
[2019-11-12] MEDS: vancomycin 1,000 MG in sodium chloride 0.9% 250 ML 300 MG IV ×2 (05:50→16:45)
[2019-11-12 06:13] VITALS: BP 117/86; PULSE 78; RESP 18; TEMP 36.5; O2SAT 98
[2019-11-12 17:28] VITALS: BP 130/64; PULSE 78; RESP 18; TEMP 36.3; O2SAT 98
[2019-11-13] MEDS: vancomycin 1,000 MG in sodium chloride 0.9% 250 ML 300 MG IV ×2 (06:03→16:50)
[2019-11-13 06:09] VITALS: BP 131/45; PULSE 70; RESP 18; TEMP 36.8; O2SAT 97
[2019-11-13 06:27] LABS: Anion Gap 12.2 (5-19); Blood Urea Nitrogen 12 mg/dL (8-23); Calcium 9.8 mg/dL (8.5-10.5); Carbon Dioxide 28 mmol/L (22-29); Chloride 98 mmol/L (98-107); Creatinine Clr Calc Pharmacy 65.6369; Glucose 93 mg/dL (65-115); Osmolality Calculated 274 mOsm/kg (285-295); Potassium 4.2 mmol/L (3.5-5.1); Sodium 134 mmol/L (136-145)
[2019-11-13 06:35] LABS: Vancomycin Trough 18.5 ug/mL (10-15)
[2019-11-13 16:53] VITALS: BP 117/61; PULSE 70; RESP 18; TEMP 36.5; O2SAT 98
[2019-11-14] MEDS: vancomycin 1,000 MG in sodium chloride 0.9% 250 ML 300 MG IV ×2 (06:00→16:45)
[2019-11-14 06:09] VITALS: BP 132/62; PULSE 75; RESP 18; TEMP 36.1; O2SAT 97
[2019-11-14 16:58] VITALS: BP 127/73; PULSE 75; RESP 18; TEMP 36.8; O2SAT 97
[2019-11-15] MEDS: vancomycin 1,000 MG in sodium chloride 0.9% 250 ML 300 MG IV ×2 (06:05→16:55)
[2019-11-15 06:32] VITALS: BP 123/59; PULSE 62; RESP 18; TEMP 36.5; O2SAT 97
[2019-11-15 16:57] VITALS: BP 125/56; PULSE 65; RESP 18; TEMP 36.5; O2SAT 98
[2019-11-16] MEDS: vancomycin 1,000 MG in sodium chloride 0.9% 250 ML 300 MG IV (05:55)
[2019-11-16 05:56] VITALS: BP 106/70; PULSE 69; RESP 18; TEMP 36.3; O2SAT 98
[2019-11-16] MEDS: vancomycin 1,000 MG in sodium chloride 0.9% 250 ML 250 MG IV (16:50)
[2019-11-16 16:58] VITALS: TEMP 36.3
[2019-11-17] MEDS: vancomycin 1,000 MG in sodium chloride 0.9% 250 ML 250 MG IV (05:50)
[2019-11-17 05:54] VITALS: BP 120/65; PULSE 72; RESP 18; TEMP 36.3; O2SAT 98
[2019-11-17] MEDS: vancomycin 1,000 MG in sodium chloride 0.9% 250 ML 300 MG IV (16:50)
[2019-11-17 16:56] VITALS: BP 125/70; PULSE 72; RESP 18; TEMP 36.3; O2SAT 97
[2019-11-18] MEDS: vancomycin 1,000 MG in sodium chloride 0.9% 250 ML 300 MG IV ×2 (05:56→15:05)
[2019-11-18 06:05] VITALS: BP 150/60; PULSE 63; RESP 18; TEMP 36.5; O2SAT 97
[2019-11-18 15:06] VITALS: BP 140/57; PULSE 74; RESP 18; TEMP 36.5; O2SAT 98
[2019-11-19] MEDS: vancomycin 1,000 MG in sodium chloride 0.9% 250 ML 300 MG IV ×2 (06:00→15:11)
[2019-11-19 06:01] VITALS: BP 128/53; PULSE 68; RESP 18; TEMP 36.5; O2SAT 96
[2019-11-19 15:12] VITALS: BP 117/54; PULSE 71; RESP 18; TEMP 36.6; O2SAT 99
[2019-11-20 06:15] VITALS: BP 136/54; PULSE 64; RESP 18; TEMP 36.2; O2SAT 98
[2019-11-20] MEDS: vancomycin 1,000 MG in sodium chloride 0.9% 250 ML 350 MG IV (06:29)
[2019-11-20 07:10] LABS: Blood Urea Nitrogen 6 mg/dL (8-23); Calcium 9.4 mg/dL (8.5-10.5); Carbon Dioxide 24 mmol/L (22-29); Chloride 100 mmol/L (98-107); Glucose 89 mg/dL (65-115); Osmolality Calculated 275 mOsm/kg (285-295); Sodium 135 mmol/L (136-145); Vancomycin Trough 16.2 ug/mL (10-15)
[2019-11-20 07:12] LABS: Creatinine Clr Calc Pharmacy 65.6369
[2019-11-20 07:13] LABS: Anion Gap 15.4 (5-19); Potassium 4.4 mmol/L (3.5-5.1)
[2019-11-20] MEDS: vancomycin 1,000 MG in sodium chloride 0.9% 250 ML 300 MG IV (14:50)
[2019-11-20 15:12] VITALS: BP 111/53; PULSE 67; RESP 18; TEMP 36.3; O2SAT 97
[2019-11-21] MEDS: vancomycin 1,000 MG in sodium chloride 0.9% 250 ML 300 MG IV ×2 (06:00→16:52)
[2019-11-21 06:01] VITALS: BP 155/68; PULSE 67; RESP 18; TEMP 36.8; O2SAT 98
[2019-11-21 16:51] VITALS: BP 120/49; PULSE 70; RESP 18; TEMP 36.1; O2SAT 98
[2019-11-22] MEDS: vancomycin 1,000 MG in sodium chloride 0.9% 250 ML 300 MG IV ×2 (06:02→17:00)
[2019-11-22 06:03] VITALS: BP 159/48; PULSE 66; RESP 18; TEMP 36.5; O2SAT 98
[2019-11-22 16:58] VITALS: BP 141/51; PULSE 77; RESP 18; TEMP 37; O2SAT 98
[2019-11-23] MEDS: vancomycin 1,000 MG in sodium chloride 0.9% 250 ML 300 MG IV ×2 (06:00→15:19)
[2019-11-23 06:16] VITALS: BP 146/54; PULSE 78; RESP 18; TEMP 36.6; O2SAT 97
[2019-11-23 15:04] VITALS: BP 92/80; PULSE 75; RESP 18; TEMP 36.6; O2SAT 97
== END 2019-12-06 23:59 | disposition home or self-care (01) ==
LOC: OPS 15:15
PROVIDERS: PCP Family Medicine; Visit Provider Thoracic Surgery (Cardiothoracic Vascular Surgery)
DX: B99.9 Unspecified infectious disease (principal)
CPT/HCPCS: 36415; 80048; 80202; 96365; 96366; J3370; J7050

== ENCOUNTER 2019-11-24 15:15 | Outpatient (CLI) | payer MEDICARE, OTHER, SELFPAY | END 2019-11-24 15:16 | disposition home or self-care (01) | LOC: WOUND 15:16 | PROVIDERS: PCP Family Medicine; Visit Provider Nurse Practitioner Family | DX: I87.2 Venous insufficiency (chronic) (peripheral) (principal); L97.812 Non-pressure chronic ulcer of other part of right lower leg with fat layer exposed | CPT/HCPCS: 97605 ==

== ENCOUNTER 2019-11-28 08:20 | Outpatient (CLI) | payer MEDICARE, OTHER, SELFPAY | END 2019-11-28 08:21 | disposition home or self-care (01) | LOC: WOUND 08:23 | PROVIDERS: PCP Family Medicine; Visit Provider Thoracic Surgery (Cardiothoracic Vascular Surgery) | DX: I87.2 Venous insufficiency (chronic) (peripheral) (principal); L97.812 Non-pressure chronic ulcer of other part of right lower leg with fat layer exposed; L02.419 Cutaneous abscess of limb, unspecified | CPT/HCPCS: 11043; 11046; 97605 ==

== ENCOUNTER 2019-12-01 15:58 | Outpatient (CLI) | payer MEDICARE, OTHER, SELFPAY | END 2019-12-01 15:59 | disposition home or self-care (01) | LOC: WOUND 15:59 | PROVIDERS: PCP Family Medicine; Visit Provider Surgery | DX: I87.2 Venous insufficiency (chronic) (peripheral) (principal); L97.812 Non-pressure chronic ulcer of other part of right lower leg with fat layer exposed; L02.419 Cutaneous abscess of limb, unspecified | CPT/HCPCS: 10061; 87070; 87077; 87186 ==

== ENCOUNTER 2019-12-05 08:09 | Outpatient (CLI) | payer MEDICARE, OTHER, SELFPAY | END 2019-12-05 08:10 | disposition home or self-care (01) | LOC: WOUND 08:10 | PROVIDERS: PCP Family Medicine; Visit Provider Thoracic Surgery (Cardiothoracic Vascular Surgery) | DX: I87.2 Venous insufficiency (chronic) (peripheral) (principal); L97.812 Non-pressure chronic ulcer of other part of right lower leg with fat layer exposed; L02.419 Cutaneous abscess of limb, unspecified | CPT/HCPCS: 11043; 11046 ==

== ENCOUNTER 2019-12-12 08:02 | Outpatient (CLI) | payer MEDICARE, OTHER, SELFPAY | END 2019-12-12 08:03 | disposition home or self-care (01) | LOC: WOUND 08:03 | PROVIDERS: PCP Family Medicine; Visit Provider Thoracic Surgery (Cardiothoracic Vascular Surgery) | DX: I87.2 Venous insufficiency (chronic) (peripheral) (principal); L97.812 Non-pressure chronic ulcer of other part of right lower leg with fat layer exposed | CPT/HCPCS: 10060; 11043; 11046 ==

== ENCOUNTER 2019-12-19 08:02 | Outpatient (CLI) | payer MEDICARE, OTHER, SELFPAY | END 2019-12-19 08:03 | disposition home or self-care (01) | LOC: WOUND 08:07 | PROVIDERS: PCP Family Medicine; Visit Provider Thoracic Surgery (Cardiothoracic Vascular Surgery) | DX: I87.2 Venous insufficiency (chronic) (peripheral) (principal); L97.812 Non-pressure chronic ulcer of other part of right lower leg with fat layer exposed | CPT/HCPCS: 11043; 11046 ==

== ENCOUNTER 2019-12-26 08:07 | Outpatient (CLI) | payer MEDICARE, OTHER, SELFPAY | END 2019-12-26 08:08 | disposition home or self-care (01) | LOC: WOUND 08:08 | PROVIDERS: PCP Family Medicine; Visit Provider Thoracic Surgery (Cardiothoracic Vascular Surgery) | DX: I87.2 Venous insufficiency (chronic) (peripheral) (principal); L97.812 Non-pressure chronic ulcer of other part of right lower leg with fat layer exposed | CPT/HCPCS: 11042; 11045 ==

== ENCOUNTER 2020-01-02 08:06 | Outpatient (CLI) | payer MEDICARE, OTHER, SELFPAY | END 2020-01-02 08:07 | disposition home or self-care (01) | LOC: WOUND 08:11 | PROVIDERS: PCP Family Medicine; Visit Provider Thoracic Surgery (Cardiothoracic Vascular Surgery) | DX: I87.2 Venous insufficiency (chronic) (peripheral) (principal); L97.812 Non-pressure chronic ulcer of other part of right lower leg with fat layer exposed | CPT/HCPCS: 11042; 11045 ==

== ENCOUNTER 2020-01-09 08:20 | Outpatient (CLI) | payer MEDICARE, OTHER, SELFPAY | END 2020-01-09 08:21 | disposition home or self-care (01) | LOC: WOUND 08:21 | PROVIDERS: PCP Family Medicine; Visit Provider Thoracic Surgery (Cardiothoracic Vascular Surgery) | DX: I87.2 Venous insufficiency (chronic) (peripheral) (principal); L97.812 Non-pressure chronic ulcer of other part of right lower leg with fat layer exposed | CPT/HCPCS: 11042 ==

== ENCOUNTER 2020-01-16 08:05 | Outpatient (CLI) | payer MEDICARE, OTHER, SELFPAY | END 2020-01-16 08:06 | disposition home or self-care (01) | LOC: WOUND 08:07 | PROVIDERS: PCP Family Medicine; Visit Provider Thoracic Surgery (Cardiothoracic Vascular Surgery) | DX: I87.2 Venous insufficiency (chronic) (peripheral) (principal); L97.812 Non-pressure chronic ulcer of other part of right lower leg with fat layer exposed | CPT/HCPCS: 11042; L3260 ==

== ENCOUNTER 2020-01-30 08:00 | Outpatient (CLI) | payer MEDICARE, OTHER, SELFPAY | END 2020-01-30 08:01 | disposition home or self-care (01) | LOC: WOUND 08:01 | PROVIDERS: PCP Family Medicine; Visit Provider Nurse Practitioner Family | DX: I87.2 Venous insufficiency (chronic) (peripheral) (principal); L97.812 Non-pressure chronic ulcer of other part of right lower leg with fat layer exposed | CPT/HCPCS: 11042 ==

== ENCOUNTER 2020-02-06 08:08 | Outpatient (CLI) | payer MEDICARE, OTHER, SELFPAY | END 2020-02-06 08:09 | disposition home or self-care (01) | LOC: WOUND 08:09 | PROVIDERS: PCP Family Medicine; Visit Provider Thoracic Surgery (Cardiothoracic Vascular Surgery) | DX: I87.2 Venous insufficiency (chronic) (peripheral) (principal); L97.812 Non-pressure chronic ulcer of other part of right lower leg with fat layer exposed | CPT/HCPCS: 11042 ==

== ENCOUNTER 2020-02-13 07:55 | Outpatient (CLI) | payer MEDICARE, OTHER, SELFPAY | END 2020-02-13 07:56 | disposition home or self-care (01) | LOC: WOUND 08:01 | PROVIDERS: PCP Family Medicine; Visit Provider Thoracic Surgery (Cardiothoracic Vascular Surgery) | DX: I87.2 Venous insufficiency (chronic) (peripheral) (principal); L97.812 Non-pressure chronic ulcer of other part of right lower leg with fat layer exposed; L97.522 Non-pressure chronic ulcer of other part of left foot with fat layer exposed; L89.893 Pressure ulcer of other site, stage 3 | CPT/HCPCS: 11042; 87070; 87077; 87176; 87186; 87205; L3260 ==

== ENCOUNTER 2020-02-21 08:23 | Outpatient (CLI) | payer MEDICARE, OTHER, SELFPAY | END 2020-02-21 08:24 | disposition home or self-care (01) | LOC: WOUND 08:24 | PROVIDERS: PCP Family Medicine; Visit Provider Thoracic Surgery (Cardiothoracic Vascular Surgery) | DX: I87.2 Venous insufficiency (chronic) (peripheral) (principal); L97.812 Non-pressure chronic ulcer of other part of right lower leg with fat layer exposed; L97.522 Non-pressure chronic ulcer of other part of left foot with fat layer exposed; L97.512 Non-pressure chronic ulcer of other part of right foot with fat layer exposed | CPT/HCPCS: 11042 ==

== ENCOUNTER 2020-02-22 12:43 | Outpatient (CLI) | payer MEDICARE, OTHER, SELFPAY ==
--- NOTE | 2020-02-22 12:47 | XR_ITS ---
WS: [id number] Right foot, 3 views, 02/22/2020 Clinical Data: PAIN REDNESS, NONHEALING ULCER Comparison: None. Findings: There is diffuse osteoporosis. There is a bunion of the head of the right first metatarsal. There are flexion deformities of the first through fifth toes. No bone destruction or erosion is seen. No oste omyelitis is seen. There are no fractures or dislocations. The patient has had internal fixation of a distal right tibia l fracture. XR/XR foot RT min 3V* [id number] Impression: 1. Diffuse osteoporosis. 2. No evidence of osteomyelitis. 3. Subluxations and flexion deformities of the first through fifth toes. 4. Bunion at the head of the right first metatarsal.
== END 2020-02-22 12:44 | disposition home or self-care (01) ==
LOC: RADWPI 12:45
PROVIDERS: PCP Family Medicine; Visit Provider Thoracic Surgery (Cardiothoracic Vascular Surgery)
DX: M81.0 Age-related osteoporosis without current pathological fracture (principal); L53.9 Erythematous condition, unspecified; M21.611 Bunion of right foot
CPT/HCPCS: 73630

== ENCOUNTER 2020-02-28 08:39 | Outpatient (CLI) | payer MEDICARE, OTHER, SELFPAY | END 2020-02-28 08:40 | disposition home or self-care (01) | LOC: WOUND 08:40 | PROVIDERS: PCP Family Medicine; Visit Provider Nurse Practitioner Family | DX: I87.2 Venous insufficiency (chronic) (peripheral) (principal); L97.812 Non-pressure chronic ulcer of other part of right lower leg with fat layer exposed; L89.893 Pressure ulcer of other site, stage 3 | CPT/HCPCS: 11042; 97597 ==

== ENCOUNTER 2020-03-12 08:19 | Outpatient (CLI) | payer MEDICARE, OTHER, SELFPAY | END 2020-03-12 08:20 | disposition home or self-care (01) | LOC: WOUND 08:21 | PROVIDERS: PCP Family Medicine; Visit Provider Nurse Practitioner Family | DX: I87.2 Venous insufficiency (chronic) (peripheral) (principal); L97.812 Non-pressure chronic ulcer of other part of right lower leg with fat layer exposed; I96 Gangrene, not elsewhere classified; L89.893 Pressure ulcer of other site, stage 3 | CPT/HCPCS: 11042; 11043 ==

== ENCOUNTER 2020-03-19 08:10 | Outpatient (CLI) | payer MEDICARE, OTHER, SELFPAY | END 2020-03-19 08:11 | disposition home or self-care (01) | LOC: WOUND 08:11 | PROVIDERS: PCP Family Medicine; Visit Provider Thoracic Surgery (Cardiothoracic Vascular Surgery) | DX: I87.2 Venous insufficiency (chronic) (peripheral) (principal); L97.812 Non-pressure chronic ulcer of other part of right lower leg with fat layer exposed; L89.893 Pressure ulcer of other site, stage 3 | CPT/HCPCS: 11042; 11043 ==

== ENCOUNTER 2020-03-26 08:04 | Outpatient (CLI) | payer MEDICARE, OTHER, SELFPAY | END 2020-03-26 08:05 | disposition home or self-care (01) | LOC: WOUND 08:05 | PROVIDERS: PCP Family Medicine; Visit Provider Thoracic Surgery (Cardiothoracic Vascular Surgery) | DX: L89.893 Pressure ulcer of other site, stage 3 (principal) | CPT/HCPCS: 11043 ==

== ENCOUNTER 2020-04-02 08:21 | Outpatient (CLI) | payer MEDICARE, OTHER, SELFPAY | END 2020-04-02 08:22 | disposition home or self-care (01) | LOC: WOUND 08:22 | PROVIDERS: PCP Family Medicine; Visit Provider Thoracic Surgery (Cardiothoracic Vascular Surgery) | DX: I96 Gangrene, not elsewhere classified (principal); L89.893 Pressure ulcer of other site, stage 3 | CPT/HCPCS: 11043 ==

== ENCOUNTER 2020-04-09 08:05 | Outpatient (CLI) | payer MEDICARE, OTHER, SELFPAY | END 2020-04-09 08:06 | disposition home or self-care (01) | LOC: WOUND 08:06 | PROVIDERS: PCP Family Medicine; Visit Provider Thoracic Surgery (Cardiothoracic Vascular Surgery) | DX: L89.893 Pressure ulcer of other site, stage 3 (principal); I96 Gangrene, not elsewhere classified | CPT/HCPCS: 11043 ==

== ENCOUNTER 2020-04-16 08:10 | Outpatient (CLI) | payer MEDICARE, OTHER, SELFPAY | END 2020-04-16 08:11 | disposition home or self-care (01) | LOC: WOUND 08:11 | PROVIDERS: PCP Family Medicine; Visit Provider Thoracic Surgery (Cardiothoracic Vascular Surgery) | DX: I96 Gangrene, not elsewhere classified (principal); L89.893 Pressure ulcer of other site, stage 3 | CPT/HCPCS: 11042 ==

== ENCOUNTER 2020-04-30 08:07 | Outpatient (RCR) | payer MEDICARE, OTHER, SELFPAY | END 2020-05-05 23:59 | disposition home or self-care (01) | LOC: WOUND 08:07 | PROVIDERS: PCP Family Medicine; Visit Provider Thoracic Surgery (Cardiothoracic Vascular Surgery) | DX: I96 Gangrene, not elsewhere classified (principal); L89.893 Pressure ulcer of other site, stage 3 | CPT/HCPCS: 11042 ==

== ENCOUNTER 2020-05-07 08:15 | Outpatient (CLI) | payer MEDICARE, OTHER, SELFPAY | END 2020-05-07 08:16 | disposition home or self-care (01) | LOC: WOUND 08:16 | PROVIDERS: PCP Family Medicine; Visit Provider Thoracic Surgery (Cardiothoracic Vascular Surgery) | DX: I96 Gangrene, not elsewhere classified (principal); L89.893 Pressure ulcer of other site, stage 3 | CPT/HCPCS: 11043 ==

== ENCOUNTER 2020-05-14 09:59 | Outpatient (CLI) | payer MEDICARE, OTHER, SELFPAY | END 2020-05-14 10:00 | disposition home or self-care (01) | LOC: WOUND 10:00 | PROVIDERS: PCP Family Medicine; Visit Provider Thoracic Surgery (Cardiothoracic Vascular Surgery) | DX: I96 Gangrene, not elsewhere classified (principal); L89.893 Pressure ulcer of other site, stage 3 | CPT/HCPCS: 11042 ==

== ENCOUNTER 2020-05-21 08:07 | Outpatient (CLI) | payer MEDICARE, OTHER, SELFPAY | END 2020-05-21 08:08 | disposition home or self-care (01) | LOC: WOUND 08:08 | PROVIDERS: PCP Family Medicine; Visit Provider Thoracic Surgery (Cardiothoracic Vascular Surgery) | DX: I96 Gangrene, not elsewhere classified (principal); L89.893 Pressure ulcer of other site, stage 3 | CPT/HCPCS: 11042 ==

== ENCOUNTER 2020-05-28 08:04 | Outpatient (CLI) | payer MEDICARE, OTHER, SELFPAY | END 2020-05-28 08:05 | disposition home or self-care (01) | LOC: WOUND 08:05 | PROVIDERS: PCP Family Medicine; Visit Provider Thoracic Surgery (Cardiothoracic Vascular Surgery) | DX: I96 Gangrene, not elsewhere classified (principal); L89.893 Pressure ulcer of other site, stage 3 | CPT/HCPCS: 11042 ==

== ENCOUNTER 2020-06-04 08:06 | Outpatient (CLI) | payer MEDICARE, OTHER, SELFPAY | END 2020-06-04 08:07 | disposition home or self-care (01) | LOC: WOUND 08:13 | PROVIDERS: PCP Family Medicine; Visit Provider Thoracic Surgery (Cardiothoracic Vascular Surgery) | DX: I96 Gangrene, not elsewhere classified (principal); L89.893 Pressure ulcer of other site, stage 3 | CPT/HCPCS: 99212 ==

== ENCOUNTER 2020-06-11 08:01 | Outpatient (CLI) | payer MEDICARE, OTHER, SELFPAY | END 2020-06-11 08:02 | disposition home or self-care (01) | LOC: WOUND 08:03 | PROVIDERS: PCP Family Medicine; Visit Provider Thoracic Surgery (Cardiothoracic Vascular Surgery) | DX: I96 Gangrene, not elsewhere classified (principal); L89.893 Pressure ulcer of other site, stage 3; L98.492 Non-pressure chronic ulcer of skin of other sites with fat layer exposed | CPT/HCPCS: 11042; 87070; 87077; 87186 ==

== ENCOUNTER 2020-06-18 08:11 | Outpatient (CLI) | payer MEDICARE, OTHER, SELFPAY | END 2020-06-18 08:12 | disposition home or self-care (01) | LOC: WOUND 08:12 | PROVIDERS: PCP Family Medicine; Visit Provider Thoracic Surgery (Cardiothoracic Vascular Surgery) | DX: I96 Gangrene, not elsewhere classified (principal); L89.893 Pressure ulcer of other site, stage 3; L98.492 Non-pressure chronic ulcer of skin of other sites with fat layer exposed | CPT/HCPCS: 11042 ==

== ENCOUNTER → 2020-06-19 08:58 | Outpatient (BNVA) | payer MEDICARE, OTHER, SELFPAY | PROVIDERS: PCP Family Medicine; Referring Provider Thoracic Surgery (Cardiothoracic Vascular Surgery); Visit Provider Internal Medicine Rheumatology | DX: M06.9 Rheumatoid arthritis, unspecified (principal); M1A.9XX1 Chronic gout, unspecified, with tophus (tophi); Z79.899 Other long term (current) drug therapy; Z87.891 Personal history of nicotine dependence; L89.899 Pressure ulcer of other site, unspecified stage | CPT/HCPCS: 99204 ==

== ENCOUNTER 2020-06-20 13:22 | Outpatient (CLI) | payer MEDICARE, OTHER, SELFPAY ==
--- NOTE | 2020-06-20 13:24 | XR_ITS ---
WS: [id number] HAND LEFT TECHNIQUE: 3 views of the left hand CLINICAL INFORMATION: M06.9 - Rheumatoid arthritis, unspecified COMPARISON: None. FINDINGS: Osteoporosis. Chronic changes of rheumatoid arthritis with MCP joint prosthesis of the second through fifth MCP joints. Slight lateral extrusion of the second MCP prosthesis. PIP and DIP joint narrowing . Advanced degenerative narrowing of the radiocarpal joint and DRUJ. XR/XR hand LT min 3V* [id number] IMPRESSION: 1. Chronic changes of rheumatoid arthritis with MCP joint prosthesis second th rough fifth joints. 2. Slight lateral extrusion of the second MCP prosthesis. 3. Otherwise chronic rheumatoid arthritis findings described above.
--- NOTE | 2020-06-20 13:24 | XR_ITS ---
WS: [id number] FOOT LEFT TECHNIQUE: 3 views of the left foot CLINICAL INFORMATION: M06.9 - Rheumatoid arthritis, unspecified COMPARISON: None. FINDINGS: Osteoporosis. Marked pes planus. Tiny plantar calcaneal spur. Flexion deformities first through fifth phalanges with subluxation. PIP and DIP joint narrowing. Degenerative arthritis involving the tarsal bones and MTP joints. Hallux valgus with bunion deformity. Prior postoperative changes screw fixatio n across the medial malleolus. XR/XR foot LT min 3V* [id number] IMPRESSION: 1. Osteoporosis. 2. Marked flexion deformities involving the phalanges with subluxation. 3. Pes planus. 4. Bunion deformity.
--- NOTE | 2020-06-20 13:24 | XR_ITS ---
WS: [id number] HAND RIGHT TECHNIQUE: 3 views of the right hand CLINICAL INFORMATION: M06.9 - Rheumatoid arthritis, unspecified COMPARISON: None. FINDINGS: Osteoporosis. Chronic changes of rheumatoid arthritis with advanced narrowing of the radiocarpal join t and ulna lunate abutment. Advanced degenerative changes at the DRUJ. Mild sclerosis proximal lunate . Second through fifth MCP joint prosthesis. Subluxation of the second third and fourth metacarpals wit h disruption of the MCP prosthesis relative to the proximal phalanx. Displacement appears new since 2 014. Fifth MCP prosthesis appears normal in alignment. Pin fixation across the fifth middle phalanx w ith additional pin fixation across the fourth PIP joint XR/XR hand RT min 3V* [id number] IMPRESSION: 1. Second through fifth MCP joint prosthesis with dorsal subluxation of the se cond third and fourth metacarpals with disruption of the prosthesis 2. Fifth MCP joint appears normally aligned with preservation of the prosthesi s.
== END 2020-06-20 13:23 | disposition home or self-care (01) ==
PROVIDERS: PCP Family Medicine; Visit Provider Internal Medicine Rheumatology
DX: M06.9 Rheumatoid arthritis, unspecified (principal)
CPT/HCPCS: 73130; 73630

== ENCOUNTER 2020-07-02 07:53 | Outpatient (CLI) | payer MEDICARE, OTHER, SELFPAY | END 2020-07-02 07:54 | disposition home or self-care (01) | LOC: WOUND 07:54 | PROVIDERS: PCP Family Medicine; Visit Provider Thoracic Surgery (Cardiothoracic Vascular Surgery) | DX: L89.893 Pressure ulcer of other site, stage 3 (principal); L98.492 Non-pressure chronic ulcer of skin of other sites with fat layer exposed | CPT/HCPCS: 11042 ==

== ENCOUNTER 2020-07-09 08:21 | Outpatient (CLI) | payer MEDICARE, OTHER, SELFPAY | END 2020-07-09 08:22 | disposition home or self-care (01) | LOC: WOUND 08:22 | PROVIDERS: PCP Family Medicine; Visit Provider Thoracic Surgery (Cardiothoracic Vascular Surgery) | DX: L89.893 Pressure ulcer of other site, stage 3 (principal); L98.492 Non-pressure chronic ulcer of skin of other sites with fat layer exposed | CPT/HCPCS: 11042 ==

== ENCOUNTER 2020-07-16 07:54 | Outpatient (CLI) | payer MEDICARE, OTHER, SELFPAY | END 2020-07-16 07:55 | disposition home or self-care (01) | LOC: WOUND 07:55 | PROVIDERS: PCP Family Medicine; Visit Provider Thoracic Surgery (Cardiothoracic Vascular Surgery) | DX: I96 Gangrene, not elsewhere classified (principal); L89.893 Pressure ulcer of other site, stage 3; L98.492 Non-pressure chronic ulcer of skin of other sites with fat layer exposed | CPT/HCPCS: 11042; 87070; 87077; 87186 ==

== ENCOUNTER → 2020-07-22 09:43 | Outpatient (BNVA) | payer MEDICARE, OTHER, SELFPAY | PROVIDERS: PCP Family Medicine; Visit Provider Internal Medicine Rheumatology | DX: M06.9 Rheumatoid arthritis, unspecified (principal); Z79.899 Other long term (current) drug therapy; M1A.9XX1 Chronic gout, unspecified, with tophus (tophi); L89.890 Pressure ulcer of other site, unstageable; I83.019 Varicose veins of right lower extremity with ulcer of unspecified site; L97.919 Non-pressure chronic ulcer of unspecified part of right lower leg with unspecified severity; R60.9 Edema, unspecified; Z87.891 Personal history of nicotine dependence | CPT/HCPCS: 99214 ==

== ENCOUNTER 2020-07-23 07:59 | Outpatient (CLI) | payer MEDICARE, OTHER, SELFPAY | END 2020-07-23 08:00 | disposition home or self-care (01) | LOC: WOUND 08:00 | PROVIDERS: PCP Family Medicine; Visit Provider Thoracic Surgery (Cardiothoracic Vascular Surgery) | DX: I96 Gangrene, not elsewhere classified (principal); L89.893 Pressure ulcer of other site, stage 3; L98.492 Non-pressure chronic ulcer of skin of other sites with fat layer exposed | CPT/HCPCS: 11042 ==

== ENCOUNTER 2020-07-30 07:55 | Outpatient (CLI) | payer MEDICARE, OTHER, SELFPAY | END 2020-07-30 07:56 | disposition home or self-care (01) | LOC: WOUND 07:57 | PROVIDERS: PCP Family Medicine; Visit Provider Nurse Practitioner Family | DX: I96 Gangrene, not elsewhere classified (principal); L89.893 Pressure ulcer of other site, stage 3; L98.492 Non-pressure chronic ulcer of skin of other sites with fat layer exposed | CPT/HCPCS: 11042 ==

== ENCOUNTER 2020-08-06 07:57 | Outpatient (CLI) | payer MEDICARE, OTHER, SELFPAY | END 2020-08-06 07:58 | disposition home or self-care (01) | LOC: WOUND 07:59 | PROVIDERS: PCP Family Medicine; Visit Provider Thoracic Surgery (Cardiothoracic Vascular Surgery) | DX: I96 Gangrene, not elsewhere classified (principal); L89.893 Pressure ulcer of other site, stage 3; L98.492 Non-pressure chronic ulcer of skin of other sites with fat layer exposed | CPT/HCPCS: 11042 ==

== ENCOUNTER 2020-08-13 08:04 | Outpatient (CLI) | payer MEDICARE, OTHER, SELFPAY | END 2020-08-13 08:05 | disposition home or self-care (01) | LOC: WOUND 08:04 | PROVIDERS: PCP Family Medicine; Visit Provider Thoracic Surgery (Cardiothoracic Vascular Surgery) | DX: L89.893 Pressure ulcer of other site, stage 3 (principal); L98.492 Non-pressure chronic ulcer of skin of other sites with fat layer exposed | CPT/HCPCS: 11042 ==

== ENCOUNTER 2020-08-20 07:50 | Outpatient (CLI) | payer MEDICARE, OTHER, SELFPAY | END 2020-08-20 07:51 | disposition home or self-care (01) | LOC: WOUND 07:51 | PROVIDERS: PCP Family Medicine; Visit Provider Thoracic Surgery (Cardiothoracic Vascular Surgery) | DX: I96 Gangrene, not elsewhere classified (principal); L89.893 Pressure ulcer of other site, stage 3; L98.492 Non-pressure chronic ulcer of skin of other sites with fat layer exposed | CPT/HCPCS: 11042 ==

== ENCOUNTER 2020-09-03 07:58 | Outpatient (CLI) | payer MEDICARE, OTHER, SELFPAY | END 2020-09-03 07:59 | disposition home or self-care (01) | LOC: WOUND 07:59 | PROVIDERS: PCP Family Medicine; Visit Provider Thoracic Surgery (Cardiothoracic Vascular Surgery) | DX: L89.893 Pressure ulcer of other site, stage 3 (principal); L98.492 Non-pressure chronic ulcer of skin of other sites with fat layer exposed | CPT/HCPCS: 11042 ==

== ENCOUNTER 2020-09-10 07:55 | Outpatient (CLI) | payer MEDICARE, OTHER, SELFPAY | END 2020-09-10 07:56 | disposition home or self-care (01) | LOC: WOUND 07:56 | PROVIDERS: PCP Family Medicine; Visit Provider Thoracic Surgery (Cardiothoracic Vascular Surgery) | DX: I96 Gangrene, not elsewhere classified (principal); L89.893 Pressure ulcer of other site, stage 3; L97.522 Non-pressure chronic ulcer of other part of left foot with fat layer exposed; L98.492 Non-pressure chronic ulcer of skin of other sites with fat layer exposed | CPT/HCPCS: 11042 ==

== ENCOUNTER 2020-09-24 07:43 | Outpatient (CLI) | payer MEDICARE, OTHER, SELFPAY | END 2020-09-24 07:44 | disposition home or self-care (01) | LOC: WOUND 07:45 | PROVIDERS: PCP Family Medicine; Visit Provider Thoracic Surgery (Cardiothoracic Vascular Surgery) | DX: I96 Gangrene, not elsewhere classified (principal); L89.893 Pressure ulcer of other site, stage 3; L97.522 Non-pressure chronic ulcer of other part of left foot with fat layer exposed; S61.002A Unspecified open wound of left thumb without damage to nail, initial encounter; X58.XXXA Exposure to other specified factors, initial encounter | CPT/HCPCS: 11042 ==

== ENCOUNTER 2020-10-01 08:04 | Outpatient (CLI) | payer MEDICARE, OTHER, SELFPAY | END 2020-10-01 08:05 | disposition home or self-care (01) | LOC: WOUND 08:05 | PROVIDERS: PCP Family Medicine; Visit Provider Nurse Practitioner Family | DX: I96 Gangrene, not elsewhere classified (principal); L89.893 Pressure ulcer of other site, stage 3; M06.9 Rheumatoid arthritis, unspecified; L98.492 Non-pressure chronic ulcer of skin of other sites with fat layer exposed | CPT/HCPCS: 11042 ==

== ENCOUNTER 2020-10-08 07:56 | Outpatient (CLI) | payer MEDICARE, OTHER, SELFPAY | END 2020-10-08 07:57 | disposition home or self-care (01) | LOC: WOUND 07:57 | PROVIDERS: PCP Family Medicine; Visit Provider Thoracic Surgery (Cardiothoracic Vascular Surgery) | DX: I96 Gangrene, not elsewhere classified (principal); M06.9 Rheumatoid arthritis, unspecified; L98.492 Non-pressure chronic ulcer of skin of other sites with fat layer exposed; L97.522 Non-pressure chronic ulcer of other part of left foot with fat layer exposed; L89.893 Pressure ulcer of other site, stage 3 | CPT/HCPCS: 11042 ==

== ENCOUNTER 2020-10-15 07:46 | Outpatient (CLI) | payer MEDICARE, OTHER, SELFPAY | END 2020-10-15 07:47 | disposition home or self-care (01) | LOC: WOUND 07:47 | PROVIDERS: PCP Family Medicine; Visit Provider Emergency Medicine | DX: I96 Gangrene, not elsewhere classified (principal); L89.893 Pressure ulcer of other site, stage 3; M06.9 Rheumatoid arthritis, unspecified; L97.522 Non-pressure chronic ulcer of other part of left foot with fat layer exposed | CPT/HCPCS: 11042 ==

== ENCOUNTER 2020-10-22 07:51 | Outpatient (CLI) | payer MEDICARE, OTHER, SELFPAY | END 2020-10-22 07:52 | disposition home or self-care (01) | LOC: WOUND 07:52 | PROVIDERS: PCP Family Medicine; Visit Provider Thoracic Surgery (Cardiothoracic Vascular Surgery) | DX: I96 Gangrene, not elsewhere classified (principal); L89.893 Pressure ulcer of other site, stage 3; M06.9 Rheumatoid arthritis, unspecified; L97.522 Non-pressure chronic ulcer of other part of left foot with fat layer exposed | CPT/HCPCS: 11042 ==

== ENCOUNTER → 2020-10-30 10:14 | Outpatient (BNVA) | payer MEDICARE, OTHER, SELFPAY | PROVIDERS: PCP Family Medicine; Visit Provider Internal Medicine Rheumatology | DX: M06.9 Rheumatoid arthritis, unspecified (principal); M1A.9XX1 Chronic gout, unspecified, with tophus (tophi); Z79.899 Other long term (current) drug therapy; I83.019 Varicose veins of right lower extremity with ulcer of unspecified site; L97.919 Non-pressure chronic ulcer of unspecified part of right lower leg with unspecified severity; R60.9 Edema, unspecified; Z71.89 Other specified counseling; Z87.891 Personal history of nicotine dependence | CPT/HCPCS: 99214 ==

== ENCOUNTER 2020-11-05 07:59 | Outpatient (CLI) | payer MEDICARE, OTHER, SELFPAY | END 2020-11-05 08:00 | disposition home or self-care (01) | LOC: WOUND 08:01 | PROVIDERS: PCP Family Medicine; Visit Provider Thoracic Surgery (Cardiothoracic Vascular Surgery) | DX: I96 Gangrene, not elsewhere classified (principal); L97.422 Non-pressure chronic ulcer of left heel and midfoot with fat layer exposed; L89.613 Pressure ulcer of right heel, stage 3 | CPT/HCPCS: 11042 ==

== ENCOUNTER 2020-11-12 08:44 | Outpatient (CLI) | payer MEDICARE, OTHER, SELFPAY | END 2020-11-12 08:45 | disposition home or self-care (01) | LOC: WOUND 08:45 | PROVIDERS: PCP Family Medicine; Visit Provider Emergency Medicine | DX: I96 Gangrene, not elsewhere classified (principal); L89.893 Pressure ulcer of other site, stage 3; L97.522 Non-pressure chronic ulcer of other part of left foot with fat layer exposed; M06.9 Rheumatoid arthritis, unspecified | CPT/HCPCS: 11042 ==

== ENCOUNTER 2020-11-19 07:58 | Outpatient (CLI) | payer MEDICARE, OTHER, SELFPAY | END 2020-11-19 07:59 | disposition home or self-care (01) | LOC: WOUND 08:00 | PROVIDERS: PCP Family Medicine; Visit Provider Thoracic Surgery (Cardiothoracic Vascular Surgery) | DX: I96 Gangrene, not elsewhere classified (principal); L89.893 Pressure ulcer of other site, stage 3; M06.9 Rheumatoid arthritis, unspecified; L97.522 Non-pressure chronic ulcer of other part of left foot with fat layer exposed | CPT/HCPCS: 11042; 97597 ==

== ENCOUNTER 2020-11-26 07:42 | Outpatient (CLI) | payer MEDICARE, OTHER, SELFPAY | END 2020-11-26 07:43 | disposition home or self-care (01) | LOC: WOUND 07:43 | PROVIDERS: PCP Family Medicine; Visit Provider Thoracic Surgery (Cardiothoracic Vascular Surgery) | DX: I96 Gangrene, not elsewhere classified (principal); L89.893 Pressure ulcer of other site, stage 3; L97.522 Non-pressure chronic ulcer of other part of left foot with fat layer exposed | CPT/HCPCS: 11042; 97597 ==

== ENCOUNTER 2020-12-03 07:53 | Outpatient (CLI) | payer MEDICARE, OTHER, SELFPAY | END 2020-12-03 07:54 | disposition home or self-care (01) | LOC: WOUND 07:54 | PROVIDERS: PCP Family Medicine; Visit Provider Thoracic Surgery (Cardiothoracic Vascular Surgery) | DX: M06.9 Rheumatoid arthritis, unspecified (principal); L97.522 Non-pressure chronic ulcer of other part of left foot with fat layer exposed | CPT/HCPCS: 11042 ==

== ENCOUNTER 2020-12-10 08:07 | Outpatient (CLI) | payer MEDICARE, OTHER, SELFPAY | END 2020-12-10 08:08 | disposition home or self-care (01) | LOC: WOUND 08:08 | PROVIDERS: PCP Family Medicine; Visit Provider Thoracic Surgery (Cardiothoracic Vascular Surgery) | DX: M06.9 Rheumatoid arthritis, unspecified (principal); L97.522 Non-pressure chronic ulcer of other part of left foot with fat layer exposed | CPT/HCPCS: 11042 ==

== ENCOUNTER 2020-12-17 08:04 | Outpatient (CLI) | payer MEDICARE, OTHER, SELFPAY | END 2020-12-17 08:05 | disposition home or self-care (01) | LOC: WOUND 08:05 | PROVIDERS: PCP Family Medicine; Visit Provider Thoracic Surgery (Cardiothoracic Vascular Surgery) | DX: M06.9 Rheumatoid arthritis, unspecified (principal); L97.522 Non-pressure chronic ulcer of other part of left foot with fat layer exposed | CPT/HCPCS: 11042 ==

== ENCOUNTER 2020-12-24 08:06 | Outpatient (CLI) | payer MEDICARE, OTHER, SELFPAY | END 2020-12-24 08:07 | disposition home or self-care (01) | LOC: WOUND 08:08 | PROVIDERS: PCP Family Medicine; Visit Provider Thoracic Surgery (Cardiothoracic Vascular Surgery) | DX: M06.9 Rheumatoid arthritis, unspecified (principal); L97.522 Non-pressure chronic ulcer of other part of left foot with fat layer exposed | CPT/HCPCS: 11042 ==

== ENCOUNTER 2020-12-31 08:02 | Outpatient (CLI) | payer MEDICARE, OTHER, SELFPAY | END 2020-12-31 08:03 | disposition home or self-care (01) | LOC: WOUND 08:03 | PROVIDERS: PCP Family Medicine; Visit Provider Thoracic Surgery (Cardiothoracic Vascular Surgery) | DX: M06.9 Rheumatoid arthritis, unspecified (principal); L97.522 Non-pressure chronic ulcer of other part of left foot with fat layer exposed | CPT/HCPCS: 15275; A6250; Q4186 ==

== ENCOUNTER 2021-01-07 07:59 | Outpatient (CLI) | payer MEDICARE, OTHER, SELFPAY | END 2021-01-07 08:00 | disposition home or self-care (01) | LOC: WOUND 08:00 | PROVIDERS: PCP Family Medicine; Visit Provider Thoracic Surgery (Cardiothoracic Vascular Surgery) | DX: M06.9 Rheumatoid arthritis, unspecified (principal); L97.522 Non-pressure chronic ulcer of other part of left foot with fat layer exposed | CPT/HCPCS: 15275; A6250; Q4186 ==

== ENCOUNTER → 2021-01-09 10:33 | Outpatient (BNVA) | payer MEDICARE, OTHER, SELFPAY | PROVIDERS: PCP Family Medicine; Visit Provider Internal Medicine Rheumatology | DX: M05.79 Rheumatoid arthritis with rheumatoid factor of multiple sites without organ or systems involvement (principal); L89.899 Pressure ulcer of other site, unspecified stage; Z87.891 Personal history of nicotine dependence; Z79.52 Long term (current) use of systemic steroids; Z79.899 Other long term (current) drug therapy | CPT/HCPCS: 99214 ==

== ENCOUNTER 2021-01-14 08:00 | Outpatient (CLI) | payer MEDICARE, OTHER, SELFPAY | END 2021-01-14 08:01 | disposition home or self-care (01) | LOC: WOUND 08:01 | PROVIDERS: PCP Family Medicine; Visit Provider Nurse Practitioner Family | DX: M06.9 Rheumatoid arthritis, unspecified (principal); L97.522 Non-pressure chronic ulcer of other part of left foot with fat layer exposed | CPT/HCPCS: 11042 ==

== ENCOUNTER 2021-01-21 08:03 | Outpatient (CLI) | payer MEDICARE, OTHER, SELFPAY | END 2021-01-21 08:04 | disposition home or self-care (01) | LOC: WOUND 08:06 | PROVIDERS: PCP Family Medicine; Visit Provider Emergency Medicine | DX: I87.2 Venous insufficiency (chronic) (peripheral) (principal); L97.522 Non-pressure chronic ulcer of other part of left foot with fat layer exposed; M06.9 Rheumatoid arthritis, unspecified; I10 Essential (primary) hypertension | CPT/HCPCS: 11042 ==

== ENCOUNTER 2021-02-04 08:10 | Outpatient (CLI) | payer MEDICARE, OTHER, SELFPAY | END 2021-02-04 08:11 | disposition home or self-care (01) | LOC: WOUND 08:11 | PROVIDERS: PCP Family Medicine; Visit Provider Nurse Practitioner Family | DX: M06.9 Rheumatoid arthritis, unspecified (principal); L97.522 Non-pressure chronic ulcer of other part of left foot with fat layer exposed; I10 Essential (primary) hypertension | CPT/HCPCS: 11042 ==

== ENCOUNTER 2021-02-19 08:09 | Outpatient (CLI) | payer MEDICARE, OTHER, SELFPAY | END 2021-02-19 08:10 | disposition home or self-care (01) | LOC: WOUND 08:10 | PROVIDERS: PCP Family Medicine; Visit Provider Thoracic Surgery (Cardiothoracic Vascular Surgery) | DX: Z09 Encounter for follow-up examination after completed treatment for conditions other than malignant neoplasm (principal) | CPT/HCPCS: 99212; A6219 ==

== ENCOUNTER 2021-03-25 05:17 | Inpatient (IN) | payer MEDICARE, OTHER, SELFPAY ==
[2021-03-25] VITALS (17 sets, daily range): BP systolic 125–210; BP diastolic 57–94; PULSE 97–108; RESP 17–34; TEMP 36.4–36.7; O2SAT 90–100; BMI 19.2
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
--- NOTE | 2021-03-25 05:27 | ECG_ITS ---
[facility] Test Date: 2021-03-25 Pat Name: Alba Maria Department: Room: Gender: Female Professor Of Education: : 1945 Requested By: Davida Bonilla Order Number: [id number] Sigifredo MD: Balaji Carmichael M.D. Measurements Intervals [place] Rate: 101 P: DC: QRS: 29 QRSD: 94 T: 63 QT: 342 QTc: 444 Interpretive Statements Possible multifocal atrial rhythm ABNORMAL RHYTHM ECG Compared to ECG 10/11/2019 08:44:13 Sinus bradycardia no longer present Myocardial infarct finding no longer present Electronically Signed On 03-26-2021 17:40:17 JEWELRY MAKER by Balaji Carmichael M.D. [id number]
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
[2021-03-25 05:38] LABS: Basophils # 0.1 10^3/uL (0.0-0.1); Basophils % 0.3 %; Hematocrit 26.8 % (37.0-47.0); Hemoglobin 7.7 g/dL (11.5-15.3); Lymphocytes # 1.1 10^3/uL (0.8-4.8); Lymphocytes % 2.5 %; Mean Corpuscular HGB Conc 28.7 g/dL (30.0-36.0); Mean Corpuscular Hemoglobin 24.1 pg (28.0-34.0); Mean Corpuscular Volume 83.8 fl (81-99); Mean Platelet Volume 9.8 fL (7.4-10.4); Monocytes # 1.9 10^3/uL (0.2-0.9); Monocytes % 4.3 %; Neutrophils # 39.99 10^3/uL (1.8-7.7); Neutrophils % 90.7 %; Nucleated Red Blood Cells % 0 %; Platelet Count 531 10^3/cmm (130-400)
[2021-03-25] MEDS: sodium chloride 0.9% 1,000 ML 999 ML IV ×2 (05:40→07:48)
[2021-03-25] MEDS: ondansetron 2 mg/ML SDV 2 mL 4 MG IVP (05:42)
[2021-03-25 05:43] LABS: Glucose Point of Care 126 mg/dL (70-110)
[2021-03-25] MEDS: morphine 4 mg/mL SDV 1 mL IVP ×2 (05:45→07:50)
[2021-03-25 05:55] LABS: Slide Review Slide Review Perform
[2021-03-25 05:57] LABS: White Blood Count 44.1 10^3/uL (4.0-10.0)
[2021-03-25 06:02] LABS: Alanine Aminotransferase 11 U/L (0-33); Albumin Level 3.5 g/dL (3.5-5.2); Alkaline Phosphatase 181 IU/L (35-105); Anion Gap 22.8 (5-19); Aspartate Amino Transferase 15 U/L (0-32); Blood Urea Nitrogen 19 mg/dL (8-23); Calcium 10.8 mg/dL (8.5-10.5); Carbon Dioxide 15 mmol/L (22-29); Chloride 97 mmol/L (98-107); Globulin 3.6 g/dL (1.3-4.6); Glucose 187 mg/dL (65-115); Lipase 41 U/L (13-60); Osmolality Calculated 279 mOsm/kg (285-295); Potassium 3.8 mmol/L (3.5-5.1); Sodium 131 mmol/L (136-145); Total Bilirubin 0.2 mg/dL (0.15-1.2); Total Protein 7.1 g/dL (6.6-8.7)
[2021-03-25 06:06] LABS: Lactate (Lactic Acid level) 4.5 mmol/L (0.5-2.2)
[2021-03-25] MEDS: iohexol 300 mg/mL 100 mL Btl IV (06:29)
--- NOTE | 2021-03-25 07:16 | US_ITS ---
WS: [id number] RIGHT UPPER QUADRANT ULTRASOUND HISTORY: cholelithiasis COMPARISON: Focused review CT 03/25/2021. Liver: 16.3 cm in length. Liver is normal size. There is mild central bile duct dilatation. No mass i dentified. Common bile duct is also dilated measuring just over 8 mm in diameter. Portal Vein: Normal hepatopetal flow with monophasic waveform. Gallbladder: Markedly distended gallbladder with stones and sludge. The gallbladder wall is not thick ened and no pericholecystic fluid identified. CBD: 0.8 cm, no stone within duct seen by ultrasound. Pancreas: Completely obscured by bowel gas. Right kidney: 7.7 cm in length. Echogenic atrophied kidney. No hydronephrosis. Cortical cyst upper po le measures 1.2 x 1.6 x 1.6 cm. Aorta and IVC: Poorly visualized aorta and IVC. No ascites identified. There is significant dilatation of the stomach and small bowel loops. US/US gall bladder [id number] IMPRESSION: 1. Dilated gallbladder with stones and sludge. Likely acute cholecystitis. 2. Dilated common bile duct measuring just greater than 8 mm. Consider choledo cholithiasis. On the recent CT question of a very tiny filling defect suspected in the distal common bile duct. Small stone in the distal duct is not excluded and should be considered. 3. Marked fluid distention of the stomach and duodenum, likely an ileus.
[2021-03-25] MEDS: promethazine 25 mg/mL SDV 1 mL 12.5 MG IM (07:47)
[2021-03-25] MEDS: heparin 5,000 unit/mL INJ 1 mL 3600 UNIT IVP (07:52)
[2021-03-25] MEDS: piperacillin-tazobactam 3.375 GM in sodium chloride 0.9% (plus) 50 ML IV ×2 (07:54→13:55)
[2021-03-25 10:18] LABS: Procalcitonin 0.18 ng/mL (0-0.5)
--- NOTE | 2021-03-25 10:58 | CT_ITS ---
WS: [id number] CT ANGIOGRAPHY ABDOMEN HISTORY: bowel ischemia TECHNIQUE: CT angiogram is performed during IV injection. Reformation images reviewed. All CT scans a [employer] use at least one of these dose optimization techniques: automated exposure contro l; mA and/or kV adjustment per patient size (includes targeted exams where dose is matched to clinica l indication); or iterative reconstruction. CONTRAST: Omnipaque 350; 95 mL IV. DLP: 311.68 mGy.cm COMPARISON: 03/25/2021. Severe emphysematous changes at the lung bases. No pneumonia. Progressive dilatation of the distal es ophagus with fluid. There is progressive dilatation of the of the stomach and small bowel with fluid. Abdominal aorta: There is extensive calcification throughout the abdominal aorta extending to the bif urcation. Heavy calcified plaque extends into the lumen beginning in the suprarenal aorta. There is c ontrast opacification to the bifurcation. Greater than 60% stenosis involving the proximal RIGHT comm on iliac artery. 50% stenosis LEFT common iliac artery. Multifocal areas of stenosis extending into t he common iliac arteries. RIGHT internal iliac appears occluded. Celiac axis is not definitely identified. There is very heavy calcification at the origin of the SMA with extensive calcified plaque intermittently visualized enhancement of the SMA which is small calib er. Heavy calcifications origin of the inferior mesenteric artery. There is increasing fluid distention throughout the small bowel loops. Increase fluid in the colon al so. No pneumatosis. No wall thickening. No free air is identified. Markedly atrophic RIGHT kidney. LE FT kidney is not obstructed. Moderate calcification at the origin of the renal arteries. Slightly gre ater involving the RIGHT renal artery. CT/CT angio abdomen [id number] IMPRESSION: 1. Severe atherosclerosis aorta and involving the mesenteric arteries. 2. Celiac axis may be completely excluded. No enhancement of the celiac axis. 3. Superior mesenteric artery severely stenosed. No contrast enhancement at th e origin of the SMA but just beyond the origin the opacification is evident. De spite the opacification artery branches are small with multifocal areas of calc ification. 4. Increasing fluid distention of small bowel and stomach. Fluid now extends i nto the distal esophagus. No ischemic changes are noted within the GI tract and no free air at this time. 5. Cholelithiasis. Very mild bile duct dilatation. Previously thought calcific ation in the distal common bile duct is not evident any longer.
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
--- NOTE | 2021-03-25 11:26 | PC.NURSE ---
Nuclear radiology states pt needs to eat something tonight, and no pain medications after midnight.
[2021-03-25] MEDS: hydrocortisone 100 mg/2 mL SDV 25 MG IVP (12:32)
[2021-03-25] MEDS: famotidine 20 mg/2 mL INJ IVP (12:32)
[2021-03-25] MEDS: sodium chloride 0.9% 1,000 ML 50 ML IV (12:32)
[2021-03-25 13:36] LABS: Hematocrit 29.2 % (37.0-47.0); Hemoglobin 8.8 g/dL (11.5-15.3)
[2021-03-25 13:53] LABS: Add Urine Microscopic? YES; Bilirubin Urine Neg (Negative); Blood Urine 2+ (Negative); Glucose Urine UA Norm (Normal); Ketones Urine Negative (Negative); Leukocyte Esterase Urine Negative (Negative); Nitrate Urine Negative (Negative); Protein Urine Neg (Negative); Urine Appearance Clear (CLEAR); Urine Color Yellow (Yellow); Urobilinogen Urine Norm (Negative); pH Urine 5 (5-7)
[2021-03-25 13:54] LABS: Add Urine Culture? No; Bacteria Urine TRACE /hpf; RBC Urine 0-4 /hpf (0-2)
[2021-03-25 14:05] LABS: Lactate (Lactic Acid level) 1.2 mmol/L (0.5-2.2)
[2021-03-25] MEDS: promethazine 25 mg/mL SDV 1 mL IM (14:58)
[2021-03-25] MEDS: heparin drip 25,000 UNIT/500 ML PREMIX 14.23 UNIT IV (15:52)
--- NOTE | 2021-03-25 16:04 | PC.NURSE ---
Patient had a run of V-tach post NG tube insertion. Dr. Galdamez notified and asked to come to bedside. Pt asymptomatic. EKG was obtained.
--- NOTE | 2021-03-25 16:22 | XR_ITS ---
WS: [id number] Exam: XR chest 1V portable [id number] Date/Time of Exam: 03/25/2021 4:22 PM Reason For Exam: COUGH Comparison 10/11/2019. The lungs are clear and hyperinflated. Heart size is normal. The mediastinum is not widened. An enter ic tube is noted in the body the stomach. Monitoring leads superimpose the chest. XR/XR chest 1V portable [id number] IMPRESSION: 1. Pulmonary hyperinflation but no acute process noted.
--- NOTE | 2021-03-25 16:23 | ECG_ITS ---
[facility] Test Date: 2021-03-25 Pat Name: Alba Maria Department: Room: Gender: Female Reception Agent: : 1945 Requested By: Emmanuel Sainz Order Number: [id number] Sigifredo MD: Balaji Carmichael M.D. Measurements Intervals [place] Rate: 110 P: 84 MS: 120 QRS: 29 QRSD: 109 T: 81 QT: 330 QTc: 447 Interpretive Statements SINUS TACHYCARDIA SEPTAL MYOCARDIAL INFARCTION , PROBABLY OLD [40+ ms Q WAVE IN V1/V2] Compared to ECG 03/25/2021 15:36:30 Junctional tachycardia no longer present ST (T wave) deviation no longer present Myocardial infarct finding still present Electronically Signed On 03-26-2021 17:43:03 OPTICAL DISPENSER by Balaji Carmichael M.D. [id number]
[2021-03-25 16:26] LABS: Hematocrit 30.5 % (37.0-47.0); Hemoglobin 9.1 g/dL (11.5-15.3); Mean Corpuscular HGB Conc 29.8 g/dL (30.0-36.0); Mean Corpuscular Hemoglobin 25.3 pg (28.0-34.0); Mean Platelet Volume 10.3 fL (7.4-10.4); Platelet Count 415 10^3/cmm (130-400); Red Blood Count 3.59 10^6/uL (4.1-5.3)
[2021-03-25 16:51] LABS: Blood Urea Nitrogen 19 mg/dL (8-23); Carbon Dioxide 15 mmol/L (22-29); Chloride 103 mmol/L (98-107); Glucose 81 mg/dL (65-115); Magnesium 1.2 mg/dL (1.7-2.3); Osmolality Calculated 279 mOsm/kg (285-295); Sodium 134 mmol/L (136-145)
[2021-03-25 16:52] LABS: Anion Gap 20.2 (5-19); Potassium 4.2 mmol/L (3.5-5.1)
[2021-03-25 17:04] LABS: Troponin(5th) Baseline 36 ng/L (0-10)
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
[2021-03-25 17:12] LABS: Slide Review Slide Review Perform; White Blood Count 51.9 10^3/uL (4.0-10.0)
[2021-03-25 17:15] LABS: Absolute Segmented Neutrophil 32.2 10/cmm (1.6-7.1); Band Neutrophils Absolute 17.6 10^3/cmm (0.0-1.2); Lymphocytes 1 %; Monocytes Absolute 1.6 10^3/cmm (0.1-0.6); Segmented Neutrophils 62 %; Total Cells Counted 100 (0-100)
[2021-03-25 17:16] LABS: Absolute Neutrophil 49.8 10^3/cmm (1.4-6.5); Eosinophils 0 %; Giant Platelets 1+; Lymphocytes Absolute 0.5 10^3/cmm (1.2-3.4); Platelet Estimate Increased (Normal); Polychromasia Trace
[2021-03-25] MEDS: metroNIDAZOLE IV 500 MG/100 ML PREMIX 100 MG IV (17:38)
--- NOTE | 2021-03-25 17:40 | PC.NURSE ---
patient resting in bed, states she feels good her stomach hurts still. Pt on low intermittent suction with her NG tube.
--- NOTE | 2021-03-25 18:23 | ECG_ITS ---
[facility] Test Date: 2021-03-25 Pat Name: Alba Maria Department: Room: Gender: Female Facility Maintenance Worker: : 1945 Requested By: Emmanuel Sainz Order Number: [id number] Sigifredo MD: Alexandria Zabala M.D. Measurements Intervals [place] Rate: 109 P: -70 MO: 89 QRS: 31 QRSD: 128 T: 53 QT: 384 QTc: 519 Interpretive Statements JUNCTIONAL TACHYCARDIA SEPTAL MYOCARDIAL INFARCTION , PROBABLY OLD [40+ ms Q WAVE IN V1/V2] MARKED ST ELEVATION, CONSIDER INFERIOR INJURY [MARKED ST ELEVATION W/O NORMALLY INFLECTED T-WAVE IN II/aVF] ST ELEVATION, CONSIDER ANTEROLATERAL INJURY [MARKED ST ELEVATION W/O NORMALLY INFLECTED T-WAVE IN V3-V6] ACUTE CT Compared to ECG 03/25/2021 05:35:16 Junctional tachycardia now present Myocardial infarct finding now present ST (T wave) deviation now present Atrial fibrillation no longer present Electronically Signed On 03-28-2021 9:41:40 MENTAL HEALTH TECHNICIAN by Alexandria Zabala M.D. [id number]
[2021-03-25 18:38] LABS: Creatine Phosphokinase 57 U/L (26-192)
[2021-03-25 19:26] LABS: Troponin 5 2HR 35.61 ng/L (0-10)
[2021-03-25 19:28] LABS: Troponin 5 2HR Delta -0.39 ABS# (0-10)
[2021-03-25] MEDS: magnesium sulfate premix 2 GM/50 ML PIGGYBACK IV (22:02)
[2021-03-25 22:20] LABS: Troponin 5 6HR 37.98 ng/L (0-10); Troponin 5 6HR Delta 1.98 ng/L (0-12)
[2021-03-26] VITALS (62 sets, daily range): BP systolic 80–156; BP diastolic 29–77; PULSE 67–145; RESP 14–33; TEMP 36.3–36.8; O2SAT 94–100; BMI 19.2
--- NOTE | 2021-03-26 00:19 | USCV_ITS ---
Alba Maria Age: 75 Gender: F : 1945 Exam Date: 03/26/2021 06:20 Ordering Phys: James Hernandez MD Technologist: TRISH Exam Location: [facility] [place] Indication: ARRHYTHMIA BP: 171 / 65 HR: 92 Rhythm: Sinus Technical Quality: Technically difficult study MEASUREMENTS (Male / Female) Normal Values 2D ECHO LV Diastolic Diameter PLAX 4.1 cm 4.2 - 5.9 / 3.9 - 5.3 cm LV Systolic Diameter PLAX 2.8 cm IVS Diastolic Thickness 1.3 cm 0.6 - 1.0 / 0.6 - 0.9 cm IVS Systolic Thickness 1.3 cm LVPW Diastolic Thickness 0.9 cm 0.6 - 1.0 / 0.6 - 0.9 cm LVPW Systolic Thickness 1.7 cm LVOT Diameter 2.0 cm LV Ejection Fraction 2D Teich 59.8 % LV Ejection Fraction MOD 2C 53.1 % LV Ejection Fraction 2C AL 55.1 % LA Diameter 3.1 cm Aorta at Sinotubular Diameter 2.4 cm M-MODE Aortic Annulus Diameter 2.9 cm LA Ao Ratio MM 1.2 DOPPLER AV Peak Velocity 120.0 cm/s LVOT Peak Velocity 90.0 cm/s AV Area Cont Eq vti 2.5 cm squared AV Area Cont Eq pk 2.4 cm squared MV Area PHT 2.1 cm squared Mitral E to A Ratio 0.5 MV E' Velocity 25.0 cm/s Mitral E to MV E' Ratio 5.8 Mitral E to LV E' Lateral Ratio 5.7 Mitral E to LV E' Septal Ratio 5.9 TR Peak Velocity 264.0 cm/s TR Peak Gradient 27.9 mmHg Right Atrial Pressure 3.0 mmHg Pulmonary Artery Systolic Pressu 30.9 mmHg FINDINGS Left Ventricle Normal left ventricular size, systolic function and upper normal wall thickness, with no regional wall motion abnormalities. Left ventricular ejection fraction is estimated at 65 %. Grade I diastolic dysfunction (abnormal relaxation filling pattern), normal to mildly elevated filling pressures. Right Ventricle Normal right ventricular size and systolic function. RVSP could not be calculated due to incomplete tricuspid regurgitation velocity profile. Right Atrium Normal right atrial size. Right atrial pressure estimated at 3 mm Hg. Left Atrium Mildly increased left atrial size. Mitral Valve Structurally normal mitral valve. No mitral valve stenosis. Trace mitral valve regurgitation. Aortic Valve Aortic valve not well visualized. No aortic valve stenosis. No aortic valve regurgitation. Tricuspid Valve Structurally normal tricuspid valve. Pulmonic Valve Pulmonic valve not well visualized. Pericardium Trivial pericardial effusion. Aorta Normal size aortic root and proximal ascending aorta. Normal sized inferior vena cava. CONCLUSIONS 1. Normal left ventricular size, systolic function and upper normal wall thickness, with no regional wall motion abnormalities. Left ventricular ejection fraction is estimated at 65 %. Grade I diastolic dysfunction (abnormal relaxation filling pattern), normal to mildly elevated filling pressures. 2. Normal right ventricular size and systolic function. 3. No prior similar studies to compare. Alexandria Zabala MD (Electronically Signed) Final Date: 26 March 2021 10:01 S
[2021-03-26] MEDS: piperacillin-tazobactam 3.375 GM in sodium chloride 0.9% (plus) 50 ML IV ×3 (00:41→20:58)
[2021-03-26] MEDS: pantoprazole 40 mg SDV IVP ×3 (00:42→20:58)
[2021-03-26] MEDS: metroNIDAZOLE IV 500 MG/100 ML PREMIX 999 MG IV ×3 (00:43→13:00)
[2021-03-26] MEDS: vancomycin 1,000 MG in sodium chloride 0.9% 250 ML 250 MG IV ×2 (02:26→19:39)
[2021-03-26] MEDS: hydrocortisone 100 mg/2 mL SDV 25 MG IVP ×2 (03:00→23:22)
[2021-03-26 04:04] LABS: Basophils % 0.1 %; Hematocrit 29.6 % (37.0-47.0); Hemoglobin 8.4 g/dL (11.5-15.3); Lymphocytes # 1.1 10^3/uL (0.8-4.8); Lymphocytes % 2.2 %; Mean Corpuscular HGB Conc 28.4 g/dL (30.0-36.0); Mean Corpuscular Hemoglobin 25.1 pg (28.0-34.0); Mean Corpuscular Volume 88.4 fl (81-99); Mean Platelet Volume 10.1 fL (7.4-10.4); Monocytes # 2.2 10^3/uL (0.2-0.9); Monocytes % 4.3 %; Neutrophils # 46.82 10^3/uL (1.8-7.7); Neutrophils % 92.1 %; Nucleated Red Blood Cells % 0 %; Platelet Count 409 10^3/cmm (130-400); Red Blood Count 3.35 10^6/uL (4.1-5.3); Red Cell Distribution Width 16.7 % (12.1-15.1)
[2021-03-26 04:14] LABS: Partial Thromboplastin Time 28.2 SECONDS (23.9-36.7)
[2021-03-26 04:19] LABS: Alanine Aminotransferase 10 U/L (0-33); Alkaline Phosphatase 121 IU/L (35-105); Anion Gap 18.3 (5-19); Aspartate Amino Transferase 15 U/L (0-32); Blood Urea Nitrogen 21 mg/dL (8-23); Calcium 9.6 mg/dL (8.5-10.5); Carbon Dioxide 17 mmol/L (22-29); Chloride 108 mmol/L (98-107); Globulin 3.1 g/dL (1.3-4.6); Glucose 73 mg/dL (65-115); Osmolality Calculated 292 mOsm/kg (285-295); Potassium 3.3 mmol/L (3.5-5.1); Sodium 140 mmol/L (136-145); Total Bilirubin 0.3 mg/dL (0.15-1.2); Total Protein 6.1 g/dL (6.6-8.7)
[2021-03-26 04:21] LABS: Slide Review Slide Review Perform
[2021-03-26 04:22] LABS: White Blood Count 50.9 10^3/uL (4.0-10.0)
[2021-03-26 05:18] LABS: Vancomycin Trough 18.6 ug/mL (10-15)
[2021-03-26 07:47] LABS: Magnesium 1.7 mg/dL (1.7-2.3)
[2021-03-26 08:37] LABS: LAB Peripheral Smear Sent for Review
--- NOTE | 2021-03-26 09:16 | PM.PN ---
Subjective Subjective: Interval history: Reports she feels a little bit better this morning. No bowel movements last night. However, upon palpation of her abdomen it seems to have more discomfort. Medications: Reviewed: Yes Vitals/I&O/Wt Last Vital Signs Temp 98.0 F 03/25/21 11:43 Pulse 103 H 03/25/21 19:03 Resp 22 H 03/25/21 19:03 BP 182/69 03/25/21 19:03 Pulse Ox 98 03/25/21 19:03 03/25/21 03/26/21 03/26/21 22:59 06:59 14:59 Intake Total 150 / 2550 682.576 / 3232.576 117.724 / 117.724 Balance 150 / 2550 682.576 / 3232.576 117.724 / 117.724 Weight last 48 hrs Weight 50.802 kg Physical Exam Narrative: EXAM NARRATIVE: General exam no distress HEENT: NG is noted Neck is supple Cardiovascular borderline tachycardic Lungs clear Abdomen tender, globally. Hypoactive bowel sounds. exam Watson is not in Extremities no cyanosis clubbing or edema Data : 03/26/21 03:56 03/26/21 03:56 Micro: Microbiology 03/25/21 07:38 Blood Culture - Preliminary Blood NEGATIVE TO DATE 03/25/21 07:36 Blood Culture - Preliminary Blood NEGATIVE TO DATE A&P Assessment and plan (1) Abdominal pain: Etiology is uncertain at this point. Contributing factors could be ischemic colitis, as the patient's lactate is elevated and significant atherosclerotic disease is noted on CT abdomen pelvis. 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 Other possibilities include acute cholecystitis, or possibly even associated peritonitis. IV antibiotics have been initiated. From my understanding HIDA scan has been ordered by surgery. Another possibility is infectious colitis such as C. difficile. C. difficile toxin has been ordered. No bowel movements overnight. No evidence of toxic megacolon on CT At this point IV antibiotics consisting of Zosyn, Flagyl and vancomycin have been started Blood cultures obtained, stool cultures Repeat lactate yesterday showed improvement Today abdominal pain is somewhat worse, and surgery intends to take for exploratory laparotomy Continue heparin drip secondary to concern of ischemic colitis As exploratory laparotomy is going to be performed, repeat lactate today will not be done. Status: Acute (2) Diarrhea: Await C. difficile toxin Await stool culture Cannot rule out ischemic colitis. Could also be related to nonfunctioning gallbladder. Status: Acute (3) Cholelithiasis: On ultrasound slightly dilated common bile duct, and question of stone on CT. HIDA scan ordered Surgery consultation appreciated Continue IV antibiotics, see above under abdominal pain Status: Acute (4) Rheumatoid arthritis: Hold immunosuppressants Discontinue prednisone, changed to hydrocortisone 25 mg IV every 12 hours while n.p.o. to avoid adrenal crisis Status: Acute (5) Anemia: Transfused 1 unit packed red blood cells in the emergency department recheck hemoglobin 1 hour following transfusion Hemoglobin 8.4 this morning Await stool Hemoccult GI prophylaxis Status: Acute Additional A&P Information Markedly elevated white blood cell count. Pathologist will review peripheral smear, although leukemic process doubtful. Primary care provider indicated normal white blood cell count months ago. Hypokalemia. Supplement IV as NPO. Check magnesium level. Allow natural Heparin for DVT prophylaxis Attestations Medical Necessity Statement*: Needs continued hospital stay secondary to abdominal pain with high likelihood of ischemic colitis and markedly elevated white blood cell count requiring IV antibiotics. Coding Level of Care Code Acute Occupational Health Nursing Director for [facility] Fwd Diagnoses Abdominal pain R10.9 Diarrhea R19.7 Cholelithiasis K80.20 Rheumatoid arthritis M06.9 Anemia D64.9
[2021-03-26] MEDS: lidocaine 1% 5 ML in potassium chloride premix 100 ML 25 ML IV (09:18)
--- NOTE | 2021-03-26 10:20 | PC.NURSE ---
discharged to OR with OR staff
[2021-03-26] MEDS: sodium chloride 0.9% 1,000 ML 30 ML IV (11:38)
[2021-03-26] MEDS: fentaNYL 50 mcg/mL INJ 2mL IVP (11:39)
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
--- NOTE | 2021-03-26 12:25 | PM.PN ---
Subjective Subjective: Interval history: patient still continues to have abdominal pain, no nausea, vomiting or BM. Vitals/I&O/Wt Last Vital Signs Temp 98.0 F 03/25/21 11:43 Pulse 101 H 03/26/21 10:10 Resp 18 03/26/21 11:39 BP 156/67 03/26/21 10:40 Pulse Ox 99 03/26/21 11:39 03/25/21 03/26/21 03/26/21 22:59 06:59 14:59 Intake Total 150 / 3232.576 682.576 / 3232.576 117.724 / 117.724 Balance 150 / 3232.576 682.576 / 3232.576 117.724 / 117.724 Weight last 48 hrs Weight 112 lb Physical Exam Narrative: EXAM NARRATIVE: Abdomen: soft, generalized tenderness, more than yesterday Urinary Catheter Management^: Watson: Cath Placed During This Visit: yes Reason for Continuing Indwelling Catheter: Accurate Measurement of Urinary Output in Critically Ill Patients Urinary Catheter Date of Insertion: 03/26/21 Urinary Catheter Time of Insertion: 07:50 Data : 03/26/21 03:56 03/26/21 03:56 Micro: Microbiology 03/25/21 07:38 Blood Culture - Preliminary Blood NEGATIVE TO DATE 03/25/21 07:36 Blood Culture - Preliminary Blood NEGATIVE TO DATE A&P Assessment and plan (1) Abdominal pain: 75-year-old female who is a smoker who presents with abdominal pain and nausea with a white count of 44,000 and 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 She has been hemodynamically stable. There is no evidence of ischemic bowel on CTA. Her alkaline phosphatase was elevated but rest of the LFTs were normal. Gallbladder ultrasound showed a dilated gallbladder with stones and sludge and possible acute cholecystitis and possible choledocholithiasis but CTA did not show any evidence of choledocholithiasis. Her abdominal exam is worse today with WBC up to 50.9. Discussed the findings with the patient and we will plan for laparoscopic possible laparotomy, bowel resection , possible ostomy. Continue IV heparin for possible bowel ischemia Continue IV Zosyn and Flagyl C. difficile pending NG to LIS Watson to gravity Protonix for GI prophylaxis Status: Acute Attestations Medical Necessity Statement*: as per primary Coding Level of Care Code Acute Internal Controls Specialist for Chg Fwd Diagnoses Abdominal pain R10.9
--- NOTE | 2021-03-26 14:07 | ANES.PROC ---
Anesthesia Procedures Procedure/Date: 03/26/21 Arterial Line: Time Out Performed: Yes Consent: requested by attending/covering physician, from patient, risks and benefits reviewed and patient agrees to proceed Size (Gauge): 20 Technique Used: guide wire technique Post-Procedure: dry sterile dressing placed Patient Tolerated Procedure: well Complications: none Site: right and radial Additional Comments: Difficult placement, US guidance used, attempted multiple times left and right radial. Ultimately successful on right radial.
--- NOTE | 2021-03-26 14:35 | PM.OP ---
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 Diagnostic laparoscopy 2. Laparoscopic lysis of adhesions for 15 minutes Pathology: none sent Surgeon: Layton Stephen Anesthesia: General Condition: stable Disposition: ICU Procedure: The patient was taken to the operating room and intubated under general anesthesia. Patient already had an NG tube and Watson catheter in place. The abdomen was prepped and draped in a sterile manner. Using 15 blade 2 cm incision was made superior to the umbilicus in the midline, subcutaneous tissue was divided using electrocautery and using open Baxter technique the peritoneal cavity was entered and a 10 mm port was placed and 15 mm of pneumoperitoneum was created. A 10 mm degree 30 degree scope was introduced and 2 separate 5 mm ports were placed in the right lower quadrant and in the suprapubic area under direct visualization. Lysis of adhesions was performed for 15 minutes of to take down transverse colon and omentum adherent to the anterior abdominal wall from prior hernia repair. There was no free fluid noted in the abdominal cavity or pelvis. No evidence of pneumoperitoneum the patient was placed in steep Trendelenburg position. The rectum and sigmoid were normal. The appendix appeared normal, cecum, ascending colon and transverse colon was mildly dilated. The descending colon sigmoid colon and splenic flexure were normal. The small bowel was then examined from the ligament of Treitz to the ileocecal valve. In the proximal jejunum there were patchy areas of mucosal ischemia but no evidence of full thickness bowel wall ischemia/necrosis. The stomach appeared normal. The gallbladder was distended but did not appear inflamed. The liver appeared normal. At this point there was no evidence of bowel necrosis requiring resection. The ports were removed under direct visualization and there is no bleeding from the port sites. The fascia in the supraumbilical port was closed using [id number] 0 Vicryl suture, subcutaneous tissue was approximated using 3-0 Vicryl suture and skin was closed using a running subcuticular 4-0 Monocryl suture and Dermabond. The patient was extubated and transferred to recovery room in stable condition.
--- NOTE | 2021-03-26 15:01 | ANE.PACU2 ---
Inpatient post-anesthesia follow up: Airway intact: Yes Vital signs: Temperature 97.3 F Pulse Rate 82 Respiratory Rate 16 Blood Pressure 129/48 Pulse Oximetry 100 Oxygen Delivery Me thod Room Air Oxygen Flow Rate 6 Fraction of Inspir ed Oxygen Hydration adequate: Yes Nausea and vomiting: No Pain level: 2 Mental status: Baseline
[2021-03-26] MEDS: metroNIDAZOLE IV 500 MG/100 ML PREMIX 100 MG IV ×2 (17:34→23:22)
[2021-03-26] MEDS: sodium chloride 0.9% 1,000 ML 75 ML IV (17:34)
[2021-03-26] MEDS: morphine 4 mg/mL SDV 1 mL 2 MG IVP (19:36)
[2021-03-26] MEDS: heparin drip 25,000 UNIT/500 ML PREMIX 15 UNIT IV (19:40)
[2021-03-27] VITALS (86 sets, daily range): BP systolic 55–175; BP diastolic 21–125; PULSE 53–121; RESP 3–28; TEMP 33.3; O2SAT 12–100
[2021-03-27 01:42] LABS: Partial Thromboplastin Time 52.5 SECONDS (23.9-36.7)
[2021-03-27] MEDS: morphine 4 mg/mL SDV 1 mL 2 MG IVP (02:12)
[2021-03-27] MEDS: metroNIDAZOLE IV 500 MG/100 ML PREMIX 100 MG IV ×4 (03:57→21:41)
[2021-03-27] MEDS: piperacillin-tazobactam 3.375 GM in sodium chloride 0.9% (plus) 50 ML IV ×3 (05:10→21:39)
[2021-03-27] MEDS: aspirin 81 mg EC Tablet PO (05:10)
[2021-03-27 07:16] LABS: Basophils # 0.1 10^3/uL (0.0-0.1); Basophils % 0.2 %; Hematocrit 25.1 % (37.0-47.0); Lymphocytes # 0.4 10^3/uL (0.8-4.8); Lymphocytes % 1.1 %; Mean Corpuscular HGB Conc 27.9 g/dL (30.0-36.0); Mean Corpuscular Hemoglobin 25.4 pg (28.0-34.0); Mean Corpuscular Volume 90.9 fl (81-99); Mean Platelet Volume 10.9 fL (7.4-10.4); Monocytes # 1.1 10^3/uL (0.2-0.9); Monocytes % 2.8 %; Neutrophils # 38.07 10^3/uL (1.8-7.7); Neutrophils % 93.7 %; Nucleated Red Blood Cells # 0.1 /100WBC; Nucleated Red Blood Cells % 0.1 %; Platelet Count 244 10^3/cmm (130-400); Red Blood Count 2.76 10^6/uL (4.1-5.3); Red Cell Distribution Width 17.2 % (12.1-15.1)
[2021-03-27 07:24] LABS: Partial Thromboplastin Time 46.2 SECONDS (23.9-36.7)
[2021-03-27 07:33] LABS: Albumin Level 2.5 g/dL (3.5-5.2); Alkaline Phosphatase 115 IU/L (35-105); Anion Gap 27.1 (5-19); Blood Urea Nitrogen 33 mg/dL (8-23); Calcium 8.4 mg/dL (8.5-10.5); Carbon Dioxide 10 mmol/L (22-29); Chloride 110 mmol/L (98-107); Globulin 2.7 g/dL (1.3-4.6); Potassium 4.1 mmol/L (3.5-5.1); Sodium 143 mmol/L (136-145); Total Bilirubin 0.5 mg/dL (0.15-1.2); Total Protein 5.2 g/dL (6.6-8.7)
[2021-03-27 07:45] LABS: Alanine Aminotransferase 1704 U/L (0-33)
[2021-03-27] MEDS: atorvastatin 40 mg Tablet 20 MG PO (07:53)
[2021-03-27] MEDS: pantoprazole 40 mg SDV IVP ×2 (07:54→21:40)
[2021-03-27] MEDS: fentaNYL 25 mcg Patch 1 PATCH TRANSDERMA (07:54)
[2021-03-27 08:01] LABS: Aspartate Amino Transferase 4347 U/L (0-32); Creatinine Clr Calc Pharmacy 32.4553; Osmolality Calculated 298 mOsm/kg (285-295)
[2021-03-27 08:02] LABS: Glucose 5 mg/dL (65-115)
[2021-03-27] MEDS: heparin 5,000 unit/mL INJ 1 mL IV (08:17)
[2021-03-27 08:19] LABS: White Blood Count 40.6 10^3/uL (4.0-10.0)
[2021-03-27 08:20] LABS: Slide Review Slide Review Perform
[2021-03-27 08:21] LABS: Glucose 5 mg/dL (65-115)
[2021-03-27] MEDS: sodium chloride 0.9% 500 ML 999 ML IV ×2 (08:23→09:22)
[2021-03-27] MEDS: hydrocortisone 100 mg/2 mL SDV IVP (08:23)
[2021-03-27] MEDS: dextrose 50% syringe 50 mL (08:23)
[2021-03-27] MEDS: dextrose 5%-sod chloride 0.9% 1,000 ML 75 ML IV (08:57)
--- NOTE | 2021-03-27 10:13 | P.PN_ITS ---
Subjective Subjective: Interval history: When I interviewed the patient earlier this morning she reported she was doing okay. Since that time she has had some lower abdominal discomfort. Nurse had noted low blood sugar, as well as low blood pressure. She has received some hydrocortisone IV, a bolus of a liter, and ordered for 2 units of blood. Surgery has been notified as well. She seems to be stabilizing. She had transition to the ICU yesterday, following her exploratory laparotomy. She denies any chest discomfort or shortness of breath. No diarrhea overnight Medications: Reviewed: Yes Vitals/I&O/Wt Last Vital Signs Temp 98.2 F 03/26/21 15:35 Pulse 73 03/27/21 09:00 Resp 25 H 03/27/21 09:00 BP 82/29 03/27/21 09:00 Pulse Ox 100 03/27/21 09:00 03/26/21 03/27/21 03/27/21 22:59 06:59 14:59 Intake Total 1410 / 2277.724 412.25 / 2689.974 2165.334 / 2165.334 Output Total 950 / 1055 Balance 1410 / 2172.724 -537.75 / 7291.371 9244.334 / 2165.334 Weight last 48 hrs Weight 53.325 kg Weight 50.802 kg Physical Exam Narrative: EXAM NARRATIVE: General exam no distress. About 800 cc out of NG. HEENT: NG is noted Neck is supple Cardiovascular regular rate and rhythm, no murmur Lungs clear Abdomen tender, hypoactive bowel sounds, slight tenderness exam Watson is noted. Urine output relatively poor Extremities no cyanosis clubbing or edema Urinary Catheter Management^: Watson: Cath Placed During This Visit: yes Reason for Continuing Indwelling Catheter: Accurate Measurement of Urinary Output in Critically Ill Patients Urinary Catheter Date of Insertion: 03/26/21 Urinary Catheter Time of Insertion: 07:50 Data : 03/27/21 06:50 03/27/21 07:56 Micro: Microbiology 03/25/21 13:15 Urine Culture - Preliminary Urine,Clean Catch Gram Negative Rods 03/25/21 07:38 Blood Culture - Preliminary Blood NEGATIVE TO DATE 03/25/21 07:36 Blood Culture - Preliminary Blood NEGATIVE TO DATE A&P Assessment and plan (1) Abdominal pain: Appears to have ischemic colitis. Some duskiness to area of small bowel on exploratory laparotomy but no need for any colectomy during that time. Gallbladder did not appear inflamed. Continue IV heparin as tolerated. Secondary to a drop in hemoglobin this has been briefly stopped to monitor for bleeding, and resuscitate patient continue IV antibiotics, in the form of vancomycin and Zosyn and Flagyl await C. difficile toxin. She has not had any diarrhea since presentation. Await blood cultures White blood cell count slightly improved Status: Acute (2) Diarrhea: Await C. difficile toxin Await stool culture appears to be related to ischemic colitis no diarrhea since presentation. No severe colon dilation. Status: Acute (3) Cholelithiasis: On ultrasound slightly dilated common bile duct, and question of stone on CT. exploratory laparotomy did not demonstrate evidence of inflamed gallbladder. Surgery consultation appreciated Continue IV antibiotics. Liver function tests are elevated consisting of AST and ALT. Mild elevation in alk phos and no elevation of bilirubin. This may be secondary to shock liver. Status: Acute (4) Rheumatoid arthritis: Hold immunosuppressants secondary to lower blood pressure hydrocortisone 100 mg IV was given now. Continue higher doses. Status: Acute (5) Anemia: Transfused 1 unit packed red blood cells in the emergency department recheck hemoglobin 1 hour following transfusion Hemoglobin 8.4 this morning Await stool Hemoccult GI prophylaxis Status: Acute Additional A&P Information Markedly elevated white blood cell count. No evidence of blasts on review. Primary care provider indicated normal white blood cell count months ago. Hypokalemia. Resolved Marked hypotension. 1 L saline bolus. 2 units of blood. Consider norepinephrine. Hold heparin currently. Hemoglobin following transfusion, monitoring for any evidence of bleeding. Increase hydrocortisone dosing. If blood pressure not coming up remove fentanyl patch Anemia. Transfused 2 units of packed red blood cells. Recheck hemoglobin following. Acute kidney injury. Fluid resuscitation as above. Monitor urine output. Repeat BMP later this evening hypoglycemia. D50 given. Fluids started consisting of D5. Hydrocortisone is noted. Allow natural Heparin for DVT prophylaxis Attestations Medical Necessity Statement*: Needs continued hospital stay secondary to ischemic colitis, metabolic acidosis, significant anemia requiring transfusion, acute kidney injury and liver injury. Critical Care Time: Critical Care Time (min): 36 Other Attestations: The high probability of a clinically significant, sudden or life threatening deterioration of the patient's [GI, hepatic, renal, infectious] system(s) required my full and direct attention, intervention and personal management. The critical care time is as shown. This time is in addition to time spent performing any reported procedures but includes the following: [x] Data and vital sign review and interpretation [x] Patient assessment, examination and intervention [x] Documentation [x] Medication orders and management Procedures Arterial Line Size (Gauge): 20 Coding Level of Care Code Acute Final Finisher for [facility] Fwd Diagnoses Abdominal pain R10.9 Diarrhea R19.7 Cholelithiasis K80.20 Rheumatoid arthritis M06.9 Anemia D64.9
[2021-03-27 11:27] LABS: Glucose Point of Care 66 mg/dL (70-110)
[2021-03-27 11:27] LABS: Glucose Point of Care 94 mg/dL (70-110)
[2021-03-27 11:27] LABS: Glucose Point of Care 44 mg/dL (70-110)
[2021-03-27] MEDS: sodium chloride 0.9% (100 ml) 100 ML (11:30)
[2021-03-27] MEDS: dextrose 50% syringe 50 mL IVP (11:31)
[2021-03-27 12:32] LABS: Glucose Point of Care 139 mg/dL (70-110)
--- NOTE | 2021-03-27 12:43 | P.PN_ITS ---
Subjective Subjective: Interval history: Patient is awake, alert, denies any abdominal pain, nausea or vomiting, would like to drink something. NG is nonbloody. No bloody bowel movements. Her hemoglobin is down to 7 and WBC is down to 40. Low urine output overnight and she has become hypotensive this morning Vitals/I&O/Wt Last Vital Signs Temp 98.2 F 03/26/21 15:35 Pulse 63 03/27/21 12:00 Resp 21 H 03/27/21 12:00 BP 97/35 03/27/21 12:00 Pulse Ox 100 03/27/21 12:00 03/26/21 03/27/21 03/27/21 22:59 06:59 14:59 Intake Total 1410 / 3762.241 412.25 / 3762.241 2842.834 / 2842.834 Output Total 950 / 1055 Balance 1410 / 2707.241 -537.75 / 2707.241 2842.834 / 2842.834 Weight last 48 hrs Weight 117 lb 9 oz Weight 112 lb Physical Exam Narrative: EXAM NARRATIVE: Abdomen: Soft, nondistended, minimally tender, incision clean dry and intact, NG to LIS Watson to gravity Urinary Catheter Management^: Watson: Cath Placed During This Visit: yes Reason for Continuing Indwelling Catheter: Accurate Measurement of Urinary Output in Critically Ill Patients Urinary Catheter Date of Insertion: 03/26/21 Urinary Catheter Time of Insertion: 07:50 Data : 03/27/21 06:50 03/27/21 07:56 Micro: Microbiology 03/25/21 13:15 Urine Culture - Preliminary Urine,Clean Catch Gram Negative Rods 03/25/21 07:38 Blood Culture - Preliminary Blood NEGATIVE TO DATE 03/25/21 07:36 Blood Culture - Preliminary Blood NEGATIVE TO DATE A&P Assessment and plan (1) History of laparoscopy: 75-year-old female who smokes 2 packs of cigarettes a day who was noted to have elevated WBC and 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 CTA did not show evidence of ischemic bowel but due to patient's worsening phys ical exam and leukocytosis she was taken to surgery yesterday where she underwent diagnostic laparoscopy. There was no bowel ischemia noted requiring any resection. WBC down to 40K: Continue IV vancomycin, Flagyl and Zosyn Elevated LFTs: Continue to monitor likely secondary to hypoperfusion Acute kidney injury, creatinine increased to 1.3: Continue with fluid resuscitation Hypotension: 1 L bolus normal saline, 2 units PRBC since hemoglobin is down to 7, if no evidence of active GI bleed restart heparin NG to LIS Watson to gravity Protonix 40 mg IV every 12 hours for GI prophylaxis C. difficile pending, No diarrhea since admission Status: Acute Attestations Medical Necessity Statement*: As per primary Procedures Arterial Line Size (Gauge): 20 Coding Level of Care Code Acute Flight Operations Inspector for [facility] Fwd Diagnoses History of laparoscopy Z98.890
[2021-03-27] MEDS: hydrocortisone 100 mg/2 mL SDV 50 MG IVP ×2 (14:56→21:40)
[2021-03-27] MEDS: vancomycin 1,000 MG in sodium chloride 0.9% 250 ML 250 MG IV (15:19)
--- NOTE | 2021-03-27 15:56 | CTR_ITS ---
PROCEDURE INFORMATION: Exam: CT Abdomen And Pelvis Without Contrast Exam date and time: 03/27/2021 3:56 PM Age: 75 years old Clinical indication: Abdominal pain; Additional info: Anemia, hypotension, probable ischemic bowel, no urine outpu TECHNIQUE: Imaging protocol: Computed tomography of the abdomen and pelvis without contrast. Radiation optimization: All CT scans at this facility use at least one of these dose optimization techniques: automated exposure control; mA and/or kV adjustment per patient size (includes targeted exams where dose is matched to clinical indication); or iterative reconstruction. COMPARISON: CT abdomen pelvis w con* [id number] 03/25/2021 6:28 AM RADIATION DOSE METRICS: Total DLP (mGy-cm): 1160.44 FINDINGS: Limitations: Study somewhat limited due to streak artifact created by the patient being scanned with the arms at the sides. Liver: There is no focal abnormality within the liver. Gallbladder and bile ducts: Multiple calcified gallstones are present. Pancreas: The pancreas is normal. Spleen: The spleen is normal. Adrenal glands: The adrenal glands are normal. Kidneys and ureters: Right kidney is significantly atrophic. There is an 18 mm hyperdense cyst probably a simple cyst upper pole right kidney and a 22 mm simple cyst lower pole of the right kidney. These are better seen on the prior exams. The left kidney is normal. There is no evidence of hydronephrosis. There are persistent cortical nephrograms of both kidneys which may indicate renal failure, hypoperfusion or contrast induced nephropathy or other severe renal impairment. Minimal excretion of contrast is noted. Stomach and bowel: There is no evidence of colitis/diverticulitis. There is diffuse fluid dilatation and moderate distention of small bowel loops throughout the abdomen without point of transition to suggest obstruction. Fluid is also seen through much of the colon. There is also marked fluid distention of the stomach. Nasogastric tube is in place. These findings likely represent severe ileus. Appendix: Not identified Intraperitoneal space: There is minimal ascites. No intraperitoneal hemorrhage is identified. Vasculature: The aorta demonstrates severe atherosclerotic calcification and ectasia. This is unchanged from the previous angiogram study. There also extensive atherosclerotic changes in the celiac, SMA, and iliac arteries as noted on prior angiogram. Lymph nodes: Unremarkable. No enlarged lymph nodes. Urinary bladder: There is a Watson catheter within the urinary bladder. Reproductive: Unremarkable as visualized. Bones/joints: Unremarkable. No acute fracture. Soft tissues: There is a large amount of free intraperitoneal air and also subcutaneous emphysema in the soft tissues of the anterior wall of the abdomen and pelvis. Per the patient's physician patient had a recent laparoscopic procedure which is the likely source of this air. CT/CT abdomen pelvis wo con [id number] IMPRESSION: 1. Subcutaneous emphysema and free intraperitoneal air, likely from recent laparoscopic procedure. 2. Severe fluid distention of the gastrointestinal tract likely representing severe ileus. 3. Persistent delayed nephrogram indicating severe renal impairment or acute kidney injury. COMMENTS: 1. THIS REPORT CONTAINS FINDINGS THAT MAY BE CRITICAL TO PATIENT CARE. The findings were verbally communicated via telephone conference with CHRISTINA FIELDS at 5:32 PM CORRECTIONAL COUNSELOR on 03/27/2021. The findings were acknowledged and understood. 2. Consistent with the [employer]'s Incidental Findings Committee white paper (J Am Dori Radiol 2018): Any incidental renal lesion less than 1 cm or classified as too small to characterize, or any incidental cystic renal lesion characterized as simple-appearing, is likely benign. No follow-up imaging is recommended for these lesions per consensus recommendations based on imaging criteria.
[2021-03-27 17:35] LABS: Glucose Point of Care 83 mg/dL (70-110)
[2021-03-27] MEDS: sodium chloride 0.9% (100 ml) 100 ML 150 ML (17:42)
[2021-03-27 18:03] LABS: Basophils % 0.1 %; Hematocrit 35.4 % (37.0-47.0); Hemoglobin 9.5 g/dL (11.5-15.3); Lymphocytes # 0.7 10^3/uL (0.8-4.8); Lymphocytes % 1.7 %; Mean Corpuscular HGB Conc 26.8 g/dL (30.0-36.0); Mean Corpuscular Hemoglobin 27.8 pg (28.0-34.0); Mean Corpuscular Volume 103.5 fl (81-99); Mean Platelet Volume 11.7 fL (7.4-10.4); Monocytes # 1.6 10^3/uL (0.2-0.9); Monocytes % 3.7 %; Neutrophils # 40.02 10^3/uL (1.8-7.7); Neutrophils % 90.3 %; Nucleated Red Blood Cells # 0.1 /100WBC; Nucleated Red Blood Cells % 0.1 %; Platelet Count 179 10^3/cmm (130-400); Red Blood Count 3.42 10^6/uL (4.1-5.3); Red Cell Distribution Width 16.8 % (12.1-15.1)
--- NOTE | 2021-03-27 18:07 | NUR.SHIFT ---
Shift Note Frequent safety and comfort rounds continue. Orders and nursing care completed as indicated. Patient noted to have low BP and blood glucose most of day. Physician notified ordered to give 1 liter bolus and D50 as well as a change in the IV fluids, see mar and V/S. Patient did not have any urine output this shift. This am hemoglobin was 7.0 orders to give 2 units of blood. Patient increased confusion throughout the day. Family came by and visited patient this afternoon and evening. Patient unable to get comfortable due to pain PRN morphine given. Patient monitored for response to intervention and treatments. Education provided includes position changes, comfort measures, progression of care, and pain management. Family verbalized understanding. Will continue to monitor.
[2021-03-27 18:11] LABS: INR 4.01 (0.8-1.2)
[2021-03-27 18:21] LABS: Lactate (Lactic Acid level) 14.2 mmol/L (0.5-2.2)
[2021-03-27 18:55] LABS: Slide Review Slide Review Perform; White Blood Count 44.3 10^3/uL (4.0-10.0)
[2021-03-27 19:14] LABS: Partial Thromboplastin Time 48.6 SECONDS (23.9-36.7)
--- NOTE | 2021-03-27 19:15 | PC.NURSE ---
Pt. has pulled out NG tube Pt. is comfortable with no complaints or needs expressed at this time. Called Dr. Horn and informed of pt. pulling out NG tube. Stated that if the patient is willing and uncomfortable from abdominal distension to replace NG tube. If patient does not want it and is comfortable to do not place NG tube.
--- NOTE | 2021-03-27 19:18 | PC.NURSE ---
Pt. is laying in bed comfortable with no abdominal distention or discomfort. Pt. states she doesn't want and NG tube right now.
--- NOTE | 2021-03-27 21:00 | PC.NURSE ---
Warming blanket placed on patient due to temperature of 92.0 degrees fahrenheit
[2021-03-28] VITALS (36 sets, daily range): BP systolic 59–89; BP diastolic 23–38; PULSE 0–81; RESP 0–26; TEMP 33.2–34.4; O2SAT 88–100
[2021-03-28] LABS: Albumin Level 2.2 g/dL (3.5-5.2); Alkaline Phosphatase 118 IU/L (35-105); Anion Gap 34.8 (5-19); Blood Urea Nitrogen 31 mg/dL (8-23); Calcium 8.4 mg/dL (8.5-10.5); Chloride 108 mmol/L (98-107); Glucose 41 mg/dL (65-115); Osmolality Calculated 295 mOsm/kg (285-295); Potassium 5.8 mmol/L (3.5-5.1); Sodium 141 mmol/L (136-145); Total Bilirubin 0.9 mg/dL (0.15-1.2); Total Protein 4.2 g/dL (6.6-8.7)
[2021-03-28 00:11] LABS: Alanine Aminotransferase 1911 U/L (0-33)
[2021-03-28 00:13] LABS: Aspartate Amino Transferase 5019 U/L (0-32); Carbon Dioxide 4 mmol/L (22-29)
[2021-03-28 01:34] LABS: Glucose Point of Care 44 mg/dL (70-110)
[2021-03-28] MEDS: hydrocortisone 100 mg/2 mL SDV 50 MG IVP (01:40)
[2021-03-28] MEDS: dextrose 50% syringe 50 mL IVP (01:40)
[2021-03-28 03:54] LABS: Hematocrit 35.8 % (37.0-47.0); Hemoglobin 9.3 g/dL (11.5-15.3); Lymphocytes # 1.3 10^3/uL (0.8-4.8); Lymphocytes % 2.6 %; Mean Corpuscular Hemoglobin 27.7 pg (28.0-34.0); Mean Corpuscular Volume 106.5 fl (81-99); Mean Platelet Volume 11.6 fL (7.4-10.4); Monocytes # 1.4 10^3/uL (0.2-0.9); Neutrophils # 42.14 10^3/uL (1.8-7.7); Neutrophils % 88.9 %; Nucleated Red Blood Cells # 0.1 /100WBC; Nucleated Red Blood Cells % 0.2 %; Platelet Count 131 10^3/cmm (130-400); Red Blood Count 3.36 10^6/uL (4.1-5.3); Red Cell Distribution Width 16.6 % (12.1-15.1)
[2021-03-28 04:16] LABS: Albumin Level 2.2 g/dL (3.5-5.2); Alkaline Phosphatase 130 IU/L (35-105); Anion Gap 34.6 (5-19); Blood Urea Nitrogen 33 mg/dL (8-23); Calcium 8.3 mg/dL (8.5-10.5); Chloride 106 mmol/L (98-107); Glucose 114 mg/dL (65-115); Osmolality Calculated 294 mOsm/kg (285-295); Sodium 138 mmol/L (136-145); Total Bilirubin 1.1 mg/dL (0.15-1.2); Total Protein 4.2 g/dL (6.6-8.7)
[2021-03-28 04:17] LABS: Add RBC Morph Yes
[2021-03-28 04:18] LABS: Carbon Dioxide 4 mmol/L (22-29); Potassium 6.6 mmol/L (3.5-5.1); White Blood Count 47.5 10^3/uL (4.0-10.0)
[2021-03-28 04:19] LABS: RBC Morph Comp No; Toxic Vacuolation 3+
[2021-03-28 04:25] LABS: Lactate (Lactic Acid level) 18.2 mmol/L (0.5-2.2)
[2021-03-28 04:27] LABS: Alanine Aminotransferase 2121 U/L (0-33)
[2021-03-28 04:30] LABS: Aspartate Amino Transferase 5504 U/L (0-32)
[2021-03-28] MEDS: piperacillin-tazobactam 3.375 GM in sodium chloride 0.9% (plus) 50 ML IV (04:33)
[2021-03-28] MEDS: metroNIDAZOLE IV 500 MG/100 ML PREMIX 100 MG IV (04:34)
--- NOTE | 2021-03-28 07:12 | PC.NURSE ---
Plan to transfer patient to comfort care this am. Dr. Hernandez spoke with patient's sister Amanda. Family on way to assist in patient's comfort.
[2021-03-28] MEDS: LORazepam 2 mg/mL INJ 1 mL IVP (07:32)
[2021-03-28] MEDS: morphine 10 mg/0.5 mL oral liq UD SUBLINGUAL (07:33)
--- NOTE | 2021-03-28 08:57 | P.DES_ITS ---
Discharge Providers DDS Date of Admission: 03/26/21 16:00 Date Summary Completed: 03/28/21 Attending Provider at Admission: James Hernandez MD Time of : 08:20 Attending Provider at Discharge: Layton Stephen MD Primary Care Provider: Jesus Piper MD DS Diagnoses Hospital Diagnoses (1) History of laparoscopy: Reason for Visit Reason for Visit: ABD Pain\Passed Out Summary Date and Time of Date of : 03/28/21 Time of : 08:20 Summary Summary: Alba is a 75-year-old white female who presented with complaints of discomfort, after eating and loose stool for many months, weight loss, and progressive symptoms to where she came into the emergency department. In the emergency department she had an elevated lactate, CTA consistent with severe vascular impairment to her bowel. There was also concern of possible cholecystitis. She was placed on IV antibiotics, NG placed, IV anticoagulants, transfuse blood, and surgery consultation was obtained. Secondary to her markedly elevated white blood cell count, and increasing pain the following day she was taken for an exploratory laparotomy. This demonstrated some duskiness to the small bowel but no need at that time for any bowel resection. The following day she had worsened clinically with development of significant metabolic acidosis, renal failure, severe hypoglycemia, increasing liver function tests. Glucose was initiated, IV hydration, further blood transfusion, ultimately a bicarbonate drip. CT was repeated noncontrast demonstrating some subcutaneous emphysema free intraperitoneal air that may be secondary to recent laparoscopic procedure, severe distention of the GI tract, persistent delayed nephrogram indicating severe renal impairment. Throughout that time. She made very scant amount of urine. I was in conversation with her family, and they did not want any escalation of care. They reported Alba's quality of life has been very poor for quite some time, she had significant memory impairment, and was unsatisfied with her own quality of life. The following day, on March 28 she was unresponsive. I discussed her care with her family again, and they elected to make her comfort measures based on reasons above. Final diagnosis ischemic colitis, renal failure, liver failure Additional Data Advance directives?: Yes Discharge Plan Discharge Patient Disposition: Condition: Stable Prescriptions: No Action hydroxychloroquine 200 mg tablet See Rx Instructions PO .COMPLEX Qty: 45 RF: 3 prednisone 10 mg tablet See Rx Instructions PO DAILY Qty: 30 RF: 1 furosemide 40 mg Tablet 40 mg PO QAM RF: 0 aspirin [Aspirin Low Dose] 81 mg Tablet,Delayed Release (Dr/Ec) 81 mg PO QAM RF: 0 hydrochlorothiazide 50 mg Tablet 50 mg PO QAM RF: 0 hydrocodone-acetaminophen 5-325 mg Tablet 1 tab PO BID PRN (Reason: Pain) RF: 0 lisinopril 20 mg Tablet 20 mg PO QAM RF: 0 potassium chloride 20 mEq Tablet,Er Particles/Crystals 20 meq PO TID RF: 0 amlodipine 10 mg Tablet 10 mg PO QAM RF: 0 simvastatin 20 mg Tablet 20 mg PO QAM RF: 0 fentanyl 25 mcg/hr Patch 72 Hour 1 patch TRANSDERMAL Q72H RF: 0 allopurinol 100 mg tablet 100 mg PO BID RF: 0 prednisone 5 mg tablet 5 mg PO QAM RF: 0 pantoprazole 40 mg tablet,delayed release (DR/EC) 40 mg PO QAM RF: 0 Humira Pen 40 mg/0.8 mL pen injector kit 40 mg SUBCUT Q14D RF: 0 cholecalciferol (vitamin D3) 50 mcg (2,000 unit) tablet 2,000 unit PO QAM RF: 0 DS Attestations Time Spent in /Discharge Care*: greater than 30 min Quality - AMI: AMI present?: No Quality - Stroke: CVA present?: No Quality - VTE: VTE present?: No Coding Level of Care Code Acute Deicer Inspector Electric for [facility] Diagnoses History of laparoscopy Z98.890
--- NOTE | 2021-03-28 09:02 | PC.NURSE ---
Patient placed on comfort measures this am. Sisters reported to bedside. LULÚ called at 0820. This nurse attempted to auscultate apical pulse for 60sec. No pulse found, Dr. Hernandez notified. Sister, Amanda signed body transfer form to release Ms. Maria to [facility]. MTS called by this nurse, patient not a candidate for donation. Belt Changer notified.
[2021-03-31 10:28] LABS: Miscellaneous Test See Scanned Lab Rpt
== END 2021-03-28 08:20 | disposition expired | DRG 356 ==
LOC: ER 22:46 → ER IP 03-26 04:33 → ICU 03-26 17:10
PROVIDERS: Emergency Medicine; Admitting Provider Internal Medicine; Emergency Provider Family Medicine; PCP Family Medicine; Visit Provider Surgery
PROC: 0WJG4ZZ Inspection of Peritoneal Cavity, Percutaneous Endoscopic Approach (ICD-10-PCS; CPT 49320; principal; 2021-03-26 12:30)
DX: K55.1 Chronic vascular disorders of intestine (principal); K65.9 Peritonitis, unspecified; E87.2 Acidosis; K80.10 Calculus of gallbladder with chronic cholecystitis without obstruction; N17.9 Acute kidney failure, unspecified; K72.90 Hepatic failure, unspecified without coma; D64.9 Anemia, unspecified; I95.9 Hypotension, unspecified; E87.6 Hypokalemia; E16.2 Hypoglycemia, unspecified; D72.829 Elevated white blood cell count, unspecified; I70.8 Atherosclerosis of other arteries; I73.9 Peripheral vascular disease, unspecified; R63.4 Abnormal weight loss; I10 Essential (primary) hypertension; F17.200 Nicotine dependence, unspecified, uncomplicated; M05.79 Rheumatoid arthritis with rheumatoid factor of multiple sites without organ or systems involvement; M1A.9XX1 Chronic gout, unspecified, with tophus (tophi); J44.9 Chronic obstructive pulmonary disease, unspecified; Z68.21 Body mass index [BMI] 21.0-21.9, adult; Z86.73 Personal history of transient ischemic attack (TIA), and cerebral infarction without residual deficits; Z79.891 Long term (current) use of opiate analgesic; Z79.82 Long term (current) use of aspirin; Z79.4 Long term (current) use of insulin; Z66 Do not resuscitate
CPT/HCPCS: 36410; 36415; 36416; 36430; 36620; 71045; 74175; 74176; 74177; 76705; 76942; 80048; 80053; 80202; 80500; 81001; 82550; 82947; 82962; 83605; 83690; 83735; 84145; 84484; 85007; 85014; 85018; 85025; 85610; 85730; 86850; 86900; 86920; 87040; 87077; 87086; 87186; 88184; 88185; 93005; 93306; 96365; 96366; 96367; 96372; 96375; 99291; C9113; J0330; J1100; J1200; J1644; J1720; J2060; J2270; J2370; J2405; J2543; J2550; J2704; J3010; J3370; J3475; J3480; J3490; J7030; J7040; J7050; P9016; P9041; Q9967; S0030